=== PATIENT | male | born 1960 | race African-American/Black ===

== ENCOUNTER 2016-06-04 19:49 | Emergency (ER) | payer SELFPAY ==
[~2016-06-04] VITALS: Ht 157.5 cm; Wt 82.0 kg
[~2016-06-04 19:49] MED LIST: LORT5TAB PO
[2016-06-04 20:58] VITALS: BP 139/70; PULSE 66; RESP 19; O2SAT 96
--- NOTE | 2016-06-04 21:16 | PD ---
HPI Chief Complaint: Lump, Cyst, Hernia Time Seen by Provider: 20:45 Travel History International Travel<30 days: No Contact w/Intl Traveler<30days: No Traveled to known affect area: No History of Present Illness HPI Patient comes in complaining of a lump in his right groin ongoing for approximately 6 weeks. Patient reports pain began after helping lift some palm trees up into the ground. Patient describes pain as a sharp burning like pain without radiation. Denies anything making the pain better or worse. Patient denies doing anything for this prior to coming to the emergency department. Denies any dysuria, testicular pain, abdominal pain, back pain, or fevers. Denies any loss or change in bowel or bladder. History Social History Alcohol Use: Yes Tobacco Use: No Allergies-Medications (Allergen,Severity, Reaction): Coded Allergies: No Known Allergies (Verified , 06/04/16) Reported Meds & Prescriptions Reported Meds & Active Scripts Active Lortab 5/500 (Acetaminophen/Hydrocodone Bitart) 5 Mg/500 Mg Tab 1 Tab PO Q4HPRN FOR PAIN Review of Systems Except as stated in HPI: all other systems reviewed are Neg Physical Exam Narrative GENERAL: Well-developed, overly nourished, in no acute distress, and non-ill appearing. SKIN: Warm and dry. HEAD: Atraumatic. Normocephalic. EYES: Pupils equal and round. EOMI. No scleral icterus. No injection or drainage. ENT: No nasal bleeding or discharge. Mucous membranes pink and moist. NECK: Trachea midline. Supple. No nuclear rigidity. RESPIRATORY: No accessory muscle use. No respiratory distress. GASTROINTESTINAL: Abdomen soft, non-tender, nondistended. Hepatic and splenic margins not palpable. No pulsatile mass. Patient is felt mass in the right inguinal suspicious for a hydrocele, less likely a hernia. There is no signs of inflammation or infection. No signs of abscess. MUSCULOSKELETAL: No obvious deformities. No clubbing. No cyanosis. No edema. Full range of motion. NEUROLOGICAL: Awake and alert. No obvious cranial nerve deficits. Motor grossly within normal limits. Normal speech. PSYCHIATRIC: Appropriate mood and affect; insight and judgment normal. Data Data Last Documented VS Vital Signs Date Time Temp Pulse Resp B/P Pulse Ox O2 Delivery O2 Flow Rate FiO2 06/04/16 20:58 66 19 139/70 96 Room Air MDM Medical Screen Exam Complete: Yes Emergency Medical Condition: No Narrative Course History and physical exam findings are not consistent with an emergent medical condition. He was given the option of receiving additional care, but has declined. Therefore the appropriate counseling recommendations were discussed with the patient and he was instructed to follow-up with his primary care physician as soon as possible for reevaluation. Patient was also informed of community resources from which he can obtain additional care. He is agreeable and verbalizes an understanding of the proposed plan. The patient states he will immediately return to the emergency department if his current complaints do not improve, new symptoms arise, or emergent condition develops. Patient ambulated out of the emergency department without difficulty. Primary Impression: Encounter for medical screening examination Disposition: [facility]-ED USE ONLY Condition: Stable Obi Suggs Jun 04, 2016 21:15
== END 2016-06-04 21:11 | disposition left against medical advice (07) ==
LOC: NEPB 19:49
DX: R10.31 Right lower quadrant pain (principal)
CPT/HCPCS: 99281

== ENCOUNTER 2016-10-21 16:25 | Inpatient (IN) | payer SELFPAY ==
[~2016-10-21] VITALS: Ht 157.5 cm; Wt 80.0 kg
[2016-10-21 16:28] VITALS: BP 129/74; PULSE 82; RESP 24; TEMP 98.5; O2SAT 95
--- NOTE | 2016-10-21 16:43 | PD ---
Physical Exam Time Seen by Provider: 16:43 Narrative 55 y/o male here for evaluation of abdominal pain for 2 days. Vital signs reviewed. seen at triage desk. Awaiting bed placement. Data Data Last Documented VS Vital Signs Date Time Temp Pulse Resp B/P Pulse Ox O2 Delivery O2 Flow Rate FiO2 10/21/16 16:28 98.5 82 24 129/74 95 Room Air MDM Medical Record Reviewed: Yes Supervised Visit with JULIA: No Timothy Ray Oct 21, 2016 16:43
[2016-10-21] MEDS ORDERED: SODIUM CHLOR 0.9% 1000 ML INJ 1,000 ML IV SCH (20:11)
[2016-10-21] MEDS ORDERED: SODIUM CHLORIDE 0.9% FLUSH 10 ML FLUSH IV FLUSH PRN (20:15)
--- NOTE | 2016-10-21 20:15 | PD ---
HPI Chief Complaint: Abdominal Pain Time Seen by Provider: 20:10 Travel History International Travel<30 days: No Contact w/Intl Traveler<30days: No Traveled to known affect area: No History of Present Illness HPI This is a 55-year-old male with no significant past medical history, presents today with points of abdominal pain 2 days. Patient denies any fevers, chills. He reports loose stools and diarrhea 6 episodes. 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 She reports her /the patient cares for this patient more than anyone else. She reports that he does use gloves however he is started to experience the symptoms 2 days ago. As no blood in his stool. There is no significant GI history. He does have an inguinal hernia. He complains of pain in his supraumbilical/epigastric area. There are no other complaints time my examination. PFSH Past Medical History High Cholesterol: Yes Diminished Hearing: No Influenza Vaccination: No Past Surgical History Other Surgery: Yes (PLATE IN LEFT ANTRIOR HEAD) Social History Alcohol Use: No Tobacco Use: No Substance Use: No Allergies-Medications (Allergen,Severity, Reaction): Coded Allergies: No Known Allergies (Verified , 06/04/16) Reported Meds & Prescriptions Reported Meds & Active Scripts Active No Active Prescriptions or Reported Medications Review of Systems Except as stated in HPI: all other systems reviewed are Neg General / Constitutional: No: Fever, Chills HENT: No: Headaches, Lightheadedness, Neck Pain Cardiovascular: No: Chest Pain or Discomfort, Palpitations Respiratory: No: Cough Gastrointestinal: Positive: Diarrhea, Abdominal Pain (supraumbilical/epigastric ), No: Nausea, Vomiting, Hematochezia Genitourinary: No: Frequency, Dysuria Musculoskeletal: No: Weakness, Pain Neurologic: No: Weakness, Dizziness, Headache Physical Exam Narrative GENERAL: Well-developed well-nourished gentleman in no acute respiratory distress. SKIN: Focused skin assessment warm/dry. HEAD: Atraumatic. Normocephalic. EYES: Pupils equal and round. No scleral icterus. No injection or drainage. ENT: No nasal bleeding or discharge. Mucous membranes pink and moist. NECK: Trachea midline. No JVD. Supple. CARDIOVASCULAR: Regular rate and rhythm. No murmur appreciated. RESPIRATORY: No accessory muscle use. Clear to auscultation. Breath sounds equal bilaterally. GASTROINTESTINAL: Abdomen soft, slightly distended. There is tenderness in his supraumbilical area. There appears to be questionable reducible ventral hernia. There is no rebound or guarding. There is also mild discomfort in his epigastrium. MUSCULOSKELETAL: No obvious deformities. No clubbing. No cyanosis. No edema. NEUROLOGICAL: Awake and alert. No obvious cranial nerve deficits. Motor grossly within normal limits. Normal speech. PSYCHIATRIC: Appropriate mood and affect; insight and judgment normal. Data Data Last Documented VS Vital Signs Date Time Temp Pulse Resp B/P Pulse Ox O2 Delivery O2 Flow Rate FiO2 10/21/16 22:26 61 18 117/60 97 Room Air 10/21/16 16:28 98.5 Orders Complete Blood Count With Diff (10/21/16 20:11) Comprehensive Metabolic Panel (10/21/16 20:11) Lipase (10/21/16 20:11) Urinalysis - C+S If Indicated (10/21/16 20:11) Iv Access Insert/Monitor (10/21/16 20:11) Ecg Monitoring (10/21/16 20:11) Oximetry (10/21/16 20:11) Sodium Chlor 0.9% 1000 Ml Inj (Ns 1000 M (10/21/16 20:11) Sodium Chloride 0.9% Flush (Ns Flush) (10/21/16 20:15) C Diff Toxin Pcr (10/21/16 20:11) Ct Abd/Pel W Iv Contrast(Rout) (10/21/16 21:38) Oral Contrast - Adult (10/21/16 21:40) Diatrizoate Liq ( Gastrowesly Liq) (10/21/16 21:40) Oral Contrast - Adult (10/21/16 23:19) Iohexol 350 Inj (Omnipaque 350 Inj) (10/21/16 23:25) Ng Gastric Tube Insert/Monitor (10/22/16 00:06) Labs Laboratory Tests Test 10/21/16 10/21/16 20:15 22:30 White Blood Count 16.3 TH/MM3 Red Blood Count 4.91 MIL/MM3 Hemoglobin 15.1 GM/DL Hematocrit 43.0 % Mean Corpuscular Volume 87.5 FL Mean Corpuscular Hemoglobin 30.7 PG Mean Corpuscular Hemoglobin 35.1 % Concent Red Cell Distribution Width 13.0 % Platelet Count 225 TH/MM3 Mean Platelet Volume 8.6 FL Neutrophils (%) (Auto) 69.3 % Lymphocytes (%) (Auto) 21.1 % Monocytes (%) (Auto) 7.9 % Eosinophils (%) (Auto) 1.3 % Basophils (%) (Auto) 0.4 % Neutrophils # (Auto) 11.3 TH/MM3 Lymphocytes # (Auto) 3.5 TH/MM3 Monocytes # (Auto) 1.3 TH/MM3 Eosinophils # (Auto) 0.2 TH/MM3 Basophils # (Auto) 0.1 TH/MM3 CBC Comment DIFF FINAL Differential Comment Sodium Level 138 MEQ/L Potassium Level 4.3 MEQ/L Chloride Level 103 MEQ/L Carbon Dioxide Level 29.6 MEQ/L Anion Gap 5 MEQ/L Blood Urea Nitrogen 24 MG/DL Creatinine 1.32 MG/DL Estimat Glomerular Filtration 69 ML/MIN Rate Random Glucose 92 MG/DL Calcium Level 9.0 MG/DL Total Bilirubin 0.3 MG/DL Aspartate Amino Transf 35 U/L (AST/SGOT) Alanine Aminotransferase 44 U/L (ALT/SGPT) Alkaline Phosphatase 111 U/L Total Protein 7.7 GM/DL Albumin 3.7 GM/DL Lipase 241 U/L Urine Color LIGHT-YELLOW Urine Turbidity CLEAR Urine pH 5.5 Urine Specific [place] 1.014 Urine Protein NEG mg/dL Urine Glucose (UA) NEG mg/dL Urine Ketones NEG mg/dL Urine Occult Blood NEG Urine Nitrite NEG Urine Bilirubin NEG Urine Urobilinogen LESS THAN 2.0 MG/DL Urine Leukocyte Esterase NEG Urine RBC LESS THAN 1 /hpf Urine WBC LESS THAN 1 /hpf Microscopic Urinalysis Comment CULT NOT INDICATED MDM Medical Decision Making Medical Screen Exam Complete: Yes Emergency Medical Condition: Yes Interpretation(s) Last 24 hours Impressions Abdomen/Pelvis CT 10/21/16 1368 Signed Impressions: Service Date/Time: October 23:19 - CONCLUSION: 1. Proximal small bowel dilatation which may reflect partial obstruction. No free air is identified. Followup examination is recommended if clinically indicated. Raghu Wilson MD Differential Diagnosis C. difficile versus ventral hernia versus pancreatitis versus diverticulitis Narrative Course 55-year-old male presents with abdominal pain and diarrhea. The patient states he's had for a couple days now. He denies a fevers, chills. 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 One of them had diarrhea. Concern was this could be C. difficile. White count was elevated at 16,000. He did not have a surgical abdomen on exam. CT scan shows partial small bowel obstruction. An NG tube has been placed and was put out a lot of clear liquids. He'll be admitted for bowel rest. There is a call out to the [facility] for admission. He'll be a surgical consult placed for tomorrow morning. Diagnosis Primary Impression: Partial bowel obstruction Additional Impressions: Diarrhea Abdominal pain Admitting Information Admitting Physician Requests: Admit Scripts No Active Prescriptions or Reported Meds Dimitri Shaw MD Oct 21, 2016 20:15
[2016-10-21 21:00] VITALS: BP 131/77; PULSE 63; RESP 18; O2SAT 98
[2016-10-21 21:03] LABS: AUTOMATED NEUTROPHIL # 11.3 TH/MM3 (1.8-7.7); BASOPHIL # 0.1 TH/MM3 (0-0.2); BASOPHIL % 0.4 % (0.0-2.0); EOSINOPHIL # 0.2 TH/MM3 (0-0.4); EOSINOPHIL % 1.3 % (0.0-4.0); HEMO FLAGS DIFF FINAL; LYMPH % 21.1 % (9.0-44.0); LYMPHOCYTE # 3.5 TH/MM3 (1.0-4.8); MEAN CELL VOLUME 87.5 FL (80.0-100.0); MEAN CORPUSCULAR HEMOGLOBIN 30.7 PG (27.0-34.0); MEAN CORPUSCULAR HGB CONC 35.1 % (32.0-36.0); MONO % 7.9 % (0.0-8.0); NEUT % 69.3 % (16.0-70.0); PLATELET COUNT 225 TH/MM3 (150-450); RED BLOOD COUNT 4.91 MIL/MM3 (4.50-5.90); WHITE BLOOD COUNT 16.3 TH/MM3 (4.0-11.0)
[2016-10-21 21:22] LABS: ANION GAP 5 MEQ/L (5-15); AST (GOT) 35 U/L (15-37); BICARBONATE 29.6 MEQ/L (21.0-32.0); BLOOD UREA NITROGEN 24 MG/DL (7-18); CHLORIDE 103 MEQ/L (98-107); GLOMERULAR FILTRATION RATE 69 ML/MIN (>89); POTASSIUM 4.3 MEQ/L (3.5-5.1); SODIUM (NA) 138 MEQ/L (136-145)
[2016-10-21 21:26] LABS: ALKALINE PHOSPHATASE 111 U/L (45-117); ALT (GPT) 44 U/L (12-78); TOTAL BILIRUBIN ADULT 0.3 MG/DL (0.2-1.0)
[2016-10-21] MEDS ORDERED: DIATRIZOATE MEGLUM/DIATRIZOATE SOD 9 ML CUP ONE (21:40)
[2016-10-21 22:26] VITALS: BP 117/60; PULSE 61; RESP 18; O2SAT 97
[2016-10-21 22:57] LABS: BLOOD, URINE NEG (NEG); GLUCOSE,URINE NEG (NEG); KETONE, URINE NEG (NEG); NITRITE,URINE NEG (NEG); PH, URINE 5.5 (5.0-8.5); URINE COLOR LIGHT-YELLOW (YELLW/STRAW)
[2016-10-21 23:04] LABS: COMMENT (UR) CULT NOT INDICATED; CULTURE IF INDICATED CULT NOT INDICATED
[2016-10-21] MEDS ORDERED: IOHEXOL 350 MG/ML 10 ML VIAL (for RAD DIAG) IV ONE (23:25)
--- NOTE | 2016-10-21 23:53 | RADRPT ---
EXAM DATE/TIME: 10/21/2016 23:19 [facility] COMPARISON: No previous studies available for comparison. INDICATIONS : Left side abdominal pain. IV CONTRAST: cc Omnipaque 350 (iohexol) IV ORAL CONTRAST: Prescribed oral contrast ingested. RADIATION DOSE: 10.29 CTDIvol (mGy) MEDICAL HISTORY : None SURGICAL HISTORY : None. ENCOUNTER: Initial ACUITY: 1 day PAIN SCALE: 9/10 LOCATION: Left abdomen. TECHNIQUE: Volumetric scanning of the abdomen and pelvis was performed. Using automated exposure control and ad justment of the mA and/or kV according to patient size, radiation dose was kept as low as reasonably achievable to obtain optimal diagnostic quality images. DICOM format image data is available electro nically for review and comparison. FINDINGS: There is subsegmental atelectasis in the left base. No pleural effusions are identified. The liver an d spleen are normal in size and no focal defects are identified. The gallbladder and pancreas are unr emarkable. No intrahepatic or extrahepatic ductal dilatation is seen. The adrenal glands and kidneys appear normal bilaterally. No hydronephrosis or mass lesions are identified. There is a distended loo p of proximal small bowel which may reflect partial obstruction. The majority of the small bowel is n ondistended. Examination of the right lower quadrant demonstrates no abnormality. The appendix is nguyen ntified and appears normal. Examination of the pelvis demonstrates no evidence of free fluid or pelvic mass. No abnormally enlarg ed inguinal or retroperitoneal lymph nodes are present. The bladder is unremarkable. The prostate gla nd is moderately enlarged impinging on the bladder base. CONCLUSION: 1. Proximal small bowel dilatation which may reflect partial obstruction. No free air is identified. Followup examination is recommended if clinically indicated. Raghu Wilson MD on October 21, 2016 at 23:47 Board Certified Radiologist. This report was verified electronically.
[2016-10-22] VITALS (8 sets, daily range): BP systolic 135–172; BP diastolic 73–91; PULSE 68–79; RESP 17–18; TEMP 95.9–99.1; O2SAT 92–99
[2016-10-22] MEDS: SODIUM CHLOR 0.9% 1000 ML INJ 1,000 ML IV SCH ×3 (00:28→20:21)
[2016-10-22] MEDS ORDERED: BISACODYL 10 MG SUPP RECTAL PRN (00:30)
[2016-10-22] MEDS ORDERED: SENNOSIDES 8.6 MG TAB PO PRN (00:30)
[2016-10-22] MEDS ORDERED: ACETAMINOPHEN 1000 MG/100 ML VIAL IV PRN (00:30)
[2016-10-22] MEDS ORDERED: LACTULOSE SYRUP 20 GM/30 ML CUP PO PRN (00:30)
[2016-10-22] MEDS ORDERED: SODIUM CHLORIDE 0.9% FLUSH 10 ML FLUSH IV FLUSH PRN (00:30)
[2016-10-22] MEDS ORDERED: ONDANSETRON HCL 4 MG/2 ML VIAL IVP PRN (00:30)
[2016-10-22] MEDS ORDERED: MAGNESIUM HYDROXIDE SUSP 30 ML CUP PO PRN (00:30)
[2016-10-22] MEDS ORDERED: MORPHINE SULFATE 4 MG/ML INJ IV PRN (00:30)
--- NOTE | 2016-10-22 03:35 | HHI.HP ---
HPI [facility] Primary [facility] Physician No Primary Care Physician Admission Diagnosis Partial small bowel obstruction, diarrhea, abdominal pain Diagnoses: (1) Partial small bowel obstruction Diagnosis: Principal (2) Renal insufficiency Diagnosis: Principal (3) Leukocytosis Diagnosis: Principal (4) HTN (hypertension) Diagnosis: Principal Travel History International Travel<30 Days: No Contact w/Intl Traveler <30 Da: No Traveled to Known Affected Are: No History of Present Illness This is a 55-year-old male with a PMH of HTN and Hyperlipidemia who presented to the ER with complaints of abdominal pain in addition to several episodes of diarrhea x2 days. Denies nausea or vomiting. No fever or chills. On arrival, BP 129/74, HR 82, O2 sat 95% on RA, Afebrile. WBC 16.3. Creatinine 1.32, no previous labs for comparison. U/a negative. CT Abd/Pelvis w/ proximal small bowel dilatation, possibly partial obstruction. S/p NGT in ER. C. Diff pending. Review of Systems Except as stated in HPI: all other systems reviewed are Neg ROS: 14 point review of systems otherwise negative. Past Family Social History Past Medical History PMH: HTN and Hyperlipidemia Past Surgical History PAST SURGICAL HISTORY: Cranial Plate Allergies: Coded Allergies: No Known Allergies (Verified , 06/04/16) Family History PAST FAMILY HISTORY: Reviewed. No h/o DM or CAD Social History PAST SOCIAL HISTORY: Negative for alcohol, tobacco or drugs. Physical Exam Vital Signs Vital Signs Date Time Temp Pulse Resp B/P Pulse Ox O2 Delivery O2 Flow Rate FiO2 10/22/16 01:55 95.9 71 18 157/85 95 10/22/16 01:00 70 16 135/73 99 10/22/16 00:16 68 18 168/83 99 Room Air 10/21/16 22:26 61 18 117/60 97 Room Air 10/21/16 21:00 63 18 131/77 98 Room Air 10/21/16 16:28 98.5 82 24 129/74 95 Room Air Physical Exam PE: GENERAL: Malaise male in no acute distress. NGT in place HEENT: PERRLA, EOMI. No scleral icterus or conjunctival pallor. No lid lag or facial droop. CARDIOVASCULAR: Regular rate and rhythm. No obvious murmurs to auscultation. No chest tenderness to palpation. RESPIRATORY: No obvious rhonchi or wheezing. Clear to auscultation. Breath sounds equal bilaterally. GASTROINTESTINAL: Abdomen soft, mild generalized tenderness palpation, nondistended. BS normal. MUSCULOSKELETAL: Extremities without clubbing, cyanosis, or edema. No obvious deformities. NEUROLOGICAL: Awake, alert and oriented x4. No focal neurologic deficits. Moving both upper and lower extremities spontaneously. Laboratory Laboratory Tests Test 10/21/16 10/21/16 20:15 22:30 White Blood Count 16.3 Red Blood Count 4.91 Hemoglobin 15.1 Hematocrit 43.0 Mean Corpuscular Volume 87.5 Mean Corpuscular Hemoglobin 30.7 Mean Corpuscular Hemoglobin 35.1 Concent Red Cell Distribution Width 13.0 Platelet Count 225 Mean Platelet Volume 8.6 Neutrophils (%) (Auto) 69.3 Lymphocytes (%) (Auto) 21.1 Monocytes (%) (Auto) 7.9 Eosinophils (%) (Auto) 1.3 Basophils (%) (Auto) 0.4 Neutrophils # (Auto) 11.3 Lymphocytes # (Auto) 3.5 Monocytes # (Auto) 1.3 Eosinophils # (Auto) 0.2 Basophils # (Auto) 0.1 CBC Comment DIFF FINAL Differential Comment Sodium Level 138 Potassium Level 4.3 Chloride Level 103 Carbon Dioxide Level 29.6 Anion Gap 5 Blood Urea Nitrogen 24 Creatinine 1.32 Estimat Glomerular Filtration 69 Rate Random Glucose 92 Calcium Level 9.0 Total Bilirubin 0.3 Aspartate Amino Transf 35 (AST/SGOT) Alanine Aminotransferase 44 (ALT/SGPT) Alkaline Phosphatase 111 Total Protein 7.7 Albumin 3.7 Lipase 241 Urine Color LIGHT-YELLOW Urine Turbidity CLEAR Urine pH 5.5 Urine Specific [place] 1.014 Urine Protein NEG Urine Glucose (UA) NEG Urine Ketones NEG Urine Occult Blood NEG Urine Nitrite NEG Urine Bilirubin NEG Urine Urobilinogen LESS THAN 2.0 Urine Leukocyte Esterase NEG Urine RBC LESS THAN 1 Urine WBC LESS THAN 1 Microscopic Urinalysis Comment CULT NOT INDICATED Result Diagram: 10/21/16201410/21/162014 Assessment and Plan Problem List: (1) Partial small bowel obstruction ICD Code: K56.69 Status: Acute (2) Leukocytosis ICD Code: D72.829 Status: Acute (3) Renal insufficiency ICD Code: N28.9 Status: Acute (4) HTN (hypertension) ICD Code: I10 Status: Acute Assessment and Plan A/P: 1. Partial SBO: c/o abdominal pain w/ diarrhea x2 days, no fever, chills, nausea or vomiting. CT Abd/Pelvis w/ partial SBO, images reviewed by me, s/p NGT in ER. Keep NPO, monitor I/O, analgesics/antiemetics as needed, IVF for hydration. 2. Leukocytosis: WBC 16, no shift, afebrile. Likely reactive. Will repeat labs in am. 3. Renal Insufficiency: Creatinine 1.32, no previous labs for comparison. UA negative. IVF for hydration, repeat labs in a.m. 4. HTN: BP 120's on arrival, currently 160's. Will monitor. Antihypertensives as needed. 5. DVT Prophylaxis: SCD/Teds. 6. Social work for d/c planning as needed. 7. Case discussed w/ ER physician at length. Physician Certification 2 Midnight Certification Type: Admission for Inpatient Services Order for Inpatient Services The services are ordered in accordance with Medicare regulations or non- Medicare payer requirements, as applicable. In the case of services not specified as inpatient-only, they are appropriately provided as inpatient services in accordance with the 2-midnight benchmark. Estimated LOS (days): 2 days is the estimated time the patient will need to remain in the hospital, assuming treatment plan goals are met and no additional complications. Post-Hospital Plan: Not yet determined Salena Brasher MD Oct 22, 2016 03:35
[2016-10-22] MEDS: MORPHINE SULFATE 4 MG/ML INJ IV PRN ×4 (04:03→20:55)
[2016-10-22] MEDS: SODIUM CHLORIDE 0.9% FLUSH 10 ML FLUSH IV FLUSH SCH ×2 (08:15→21:00)
[2016-10-22] MEDS: DOCUSATE SODIUM 50 MG/SENNA 8.6 MG TAB PO SCH ×2 (08:16→20:53)
--- NOTE | 2016-10-22 13:12 | HHI.PR ---
Subjective Remarks Follow-up for SBO Had a big bowel movement this morning, allegedly loose. Abdominal pain resolved. No nausea or vomiting. Objective Vitals Vital Signs Date Time Temp Pulse Resp B/P Pulse Ox O2 Delivery O2 Flow Rate FiO2 10/22/16 12:00 98.3 74 17 158/81 94 10/22/16 08:00 98.0 70 17 153/83 93 10/22/16 06:44 96.3 72 18 147/84 92 10/22/16 01:55 95.9 71 18 157/85 95 10/22/16 01:00 70 16 135/73 99 10/22/16 00:16 68 18 168/83 99 Room Air 10/21/16 22:26 61 18 117/60 97 Room Air 10/21/16 21:00 63 18 131/77 98 Room Air 10/21/16 16:28 98.5 82 24 129/74 95 Room Air I/O 10/21/16 10/21/16 10/21/16 10/22/16 10/22/16 10/22/16 06:59 14:59 22:59 06:59 14:59 22:59 Intake Total 1572 ml Output Total 275 ml Balance 1297 ml Intake IV Total 1572 ml Output Gastric Drainage Total 275 ml # Voids 1 Result Diagram: 10/21/16201410/21/162014 Objective Remarks GENERAL: Malaise male in no acute distress. NGT in place CARDIOVASCULAR: Regular rate and rhythm. No obvious murmurs to auscultation. No chest tenderness to palpation. RESPIRATORY: No obvious rhonchi or wheezing. Clear to auscultation. Breath sounds equal bilaterally. GASTROINTESTINAL: Abdomen soft, mild generalized tenderness palpation, nondistended. BS normal. MUSCULOSKELETAL: Extremities without clubbing, cyanosis, or edema. No obvious deformities. NEUROLOGICAL: Awake, alert and oriented x4. No focal neurologic deficits. Moving both upper and lower extremities spontaneously. A/P Problem List: (1) Partial small bowel obstruction ICD Code: K56.69 Status: Acute (2) Leukocytosis ICD Code: D72.829 Status: Acute (3) Renal insufficiency ICD Code: N28.9 Status: Acute (4) HTN (hypertension) ICD Code: I10 Status: Acute Assessment and Plan 1. Partial SBO: c/o abdominal pain w/ diarrhea x2 days, no fever, chills, nausea or vomiting. CT Abd/Pelvis w/ partial SBO, images reviewed by me, NG tube in place, passing gas, had a bowel movement. Clamp NG tube, check abdominal x-ray, full liquid diet. Check CBC and BMP tomorrow, continue IVF. 2. Leukocytosis: WBC 16, no shift, afebrile. Likely reactive. Will repeat labs in am. 3. Renal Insufficiency: Creatinine 1.32, no previous labs for comparison. UA negative. IVF for hydration, repeat labs in a.m. 4. HTN: BP 120's on arrival, currently 160's. Will monitor. Antihypertensives as needed. 5. DVT Prophylaxis: SCD/Teds. Janeth Boone MD Oct 22, 2016 13:12
--- NOTE | 2016-10-22 17:39 | RADRPT ---
EXAM DATE/TIME: 10/22/2016 17:09 [facility] COMPARISON: No previous studies available for comparison. INDICATIONS : Obstruction. MEDICAL HISTORY : None. SURGICAL HISTORY : None. ENCOUNTER: Initial ACUITY: 2 days PAIN SCORE: 0/10 LOCATION: Bilateral abdomen. FINDINGS: Nasogastric tube is across the GE junction. Minimal radiograph contrast is present throughout the co kathrin. I do not see evidence or complete small bowel obstruction. CONCLUSION: Negative for small bowel obstruction. Again the contrast is in the rectum. Chuy Martin MD FACR on October 22, 2016 at 17:36 Board Certified Radiologist. This report was verified electronically.
[2016-10-23] VITALS: BP 161/87; PULSE 83; RESP 18; TEMP 97.9; O2SAT 92
[2016-10-23 05:21] LABS: AUTOMATED NEUTROPHIL # 15.2 TH/MM3 (1.8-7.7); BASOPHIL # 0.1 TH/MM3 (0-0.2); BASOPHIL % 0.5 % (0.0-2.0); EOSINOPHIL # 0.2 TH/MM3 (0-0.4); EOSINOPHIL % 0.9 % (0.0-4.0); HEMATOCRIT 43.6 % (39.0-51.0); HEMO FLAGS DIFF FINAL; LYMPH % 11.4 % (9.0-44.0); LYMPHOCYTE # 2.2 TH/MM3 (1.0-4.8); MEAN CELL VOLUME 87.9 FL (80.0-100.0); MEAN CORPUSCULAR HEMOGLOBIN 29.9 PG (27.0-34.0); MONO % 7.5 % (0.0-8.0); NEUT % 79.7 % (16.0-70.0); PLATELET COUNT 234 TH/MM3 (150-450); RED BLOOD COUNT 4.96 MIL/MM3 (4.50-5.90); RED CELL DISTRIBUTION WIDTH 13.1 % (11.6-17.2); WHITE BLOOD COUNT 19.1 TH/MM3 (4.0-11.0)
[2016-10-23 06:06] LABS: ALKALINE PHOSPHATASE 98 U/L (45-117); ALT (GPT) 32 U/L (12-78); ANION GAP 9 MEQ/L (5-15); AST (GOT) 17 U/L (15-37); BICARBONATE 25.6 MEQ/L (21.0-32.0); BLOOD UREA NITROGEN 8 MG/DL (7-18); CHLORIDE 104 MEQ/L (98-107); GLOMERULAR FILTRATION RATE 74 ML/MIN (>89); POTASSIUM 3.7 MEQ/L (3.5-5.1); SODIUM (NA) 139 MEQ/L (136-145); TOTAL BILIRUBIN ADULT 0.5 MG/DL (0.2-1.0)
[2016-10-23] MEDS: SODIUM CHLOR 0.9% 1000 ML INJ 1,000 ML IV SCH (06:21)
[2016-10-23 08:00] VITALS: BP 157/86; PULSE 75; RESP 18; TEMP 98.7; O2SAT 93
[2016-10-23] MEDS: DOCUSATE SODIUM 50 MG/SENNA 8.6 MG TAB PO SCH (08:08)
[2016-10-23] MEDS: SODIUM CHLORIDE 0.9% FLUSH 10 ML FLUSH IV FLUSH SCH (08:09)
--- NOTE | 2016-10-23 10:09 | HHI.PR ---
Subjective Remarks Follow-up for SBO Had a big bowel movement, normal, formed, passing gas. No abdominal pain, nausea or vomiting. Tolerated regular diet for dinner. Objective Vitals Vital Signs Date Time Temp Pulse Resp B/P Pulse Ox O2 Delivery O2 Flow Rate FiO2 10/23/16 08:00 98.7 75 18 157/86 93 10/23/16 00:00 97.9 83 18 161/87 92 10/22/16 20:00 98.8 79 18 172/91 95 10/22/16 16:00 99.1 78 17 161/90 94 10/22/16 12:00 98.3 74 17 158/81 94 I/O 10/22/16 10/22/16 10/22/16 10/23/16 10/23/16 10/23/16 07:00 15:00 23:00 07:00 15:00 23:00 Intake Total 1572 ml 1428 ml 210 ml 637 ml Output Total 275 ml 600 ml 400 ml Balance 1297 ml 1428 ml -390 ml 237 ml Intake Oral 720 ml IV Total 1572 ml 708 ml 210 ml 637 ml Output Urine Total 600 ml 400 ml Gastric Drainage Total 275 ml # Voids 1 3 # Bowel Movements 0 Result Diagram: 10/23/16 0456 10/23/16 0456 Imaging Last Impressions Abdomen X-Ray 10/22/16 0000 Signed Impressions: Service Date/Time: Saturday, October 22, 2016 17:09 - CONCLUSION: Negative for small bowel obstruction. Again the contrast is in the rectum. Chuy Martin MD FACR Abdomen/Pelvis CT 10/21/168 Signed Impressions: Service Date/Time: October 23:19 - CONCLUSION: 1. Proximal small bowel dilatation which may reflect partial obstruction. No free air is identified. Followup examination is recommended if clinically indicated. Raghu Wilson MD Objective Remarks GENERAL: Not in distress, NG tube in place CARDIOVASCULAR: Regular rate and rhythm. No obvious murmurs to auscultation. No chest tenderness to palpation. RESPIRATORY: No obvious rhonchi or wheezing. Clear to auscultation. Breath sounds equal bilaterally. GASTROINTESTINAL: Abdomen soft, nontender, nondistended, obese. MUSCULOSKELETAL: Extremities without clubbing, cyanosis, or edema. No obvious deformities. NEUROLOGICAL: Awake, alert and oriented x4. No focal neurologic deficits. Moving both upper and lower extremities spontaneously. A/P Problem List: (1) Partial small bowel obstruction ICD Code: K56.69 Status: Acute (2) Leukocytosis ICD Code: D72.829 Status: Acute (3) Renal insufficiency ICD Code: N28.9 Status: Acute (4) HTN (hypertension) ICD Code: I10 Status: Acute Assessment and Plan This is a 55-year-old male who came in with diarrhea and severe abdominal pain 1. Partial SBO with gastroenteritis: c/o abdominal pain w/ diarrhea x2 days, no fever, chills, nausea or vomiting. CT Abd/Pelvis w/ partial SBO, NG tube in place, passing gas, had not a big bowel movement, tolerating diet, remove NG tube, repeat abdominal x-ray unremarkable, no SBO. If tolerates breakfast, may discharge today 2. Leukocytosis: Likely secondary to gastroenteritis/reactive. Patient's bowel movements are formed, diarrhea resolved. 3. Renal Insufficiency: Resolved with IVF 4. HTN: BP 120's on arrival, currently 160's. Will monitor. Antihypertensives as needed. Follow-up as outpatient 5. DVT Prophylaxis: SCD/Teds. Discharge Planning Discharge today if tolerates breakfast Janeth Boone MD Oct 23, 2016 10:08
--- NOTE | 2016-10-23 10:13 | HHI.DS ---
Discharge Summary Admission Date Oct 22, 2016 at 00:28 Discharge Date: Oct 23, 2016 Admitting Diagnosis Partial small bowel obstruction, diarrhea, abdominal pain (1) Partial small bowel obstruction ICD Code: K56.69 Diagnosis: Principal (2) Leukocytosis ICD Code: D72.829 Diagnosis: Secondary (3) Renal insufficiency ICD Code: N28.9 Diagnosis: Secondary (4) HTN (hypertension) ICD Code: I10 Diagnosis: Secondary (5) Gastroenteritis ICD Code: K52.9 Procedures None Brief History - From Admission This is a 55-year-old male with a PMH of HTN and Hyperlipidemia who presented to the ER with complaints of abdominal pain in addition to several episodes of diarrhea x2 days. Denies nausea or vomiting. No fever or chills. On arrival, BP 129/74, HR 82, O2 sat 95% on RA, Afebrile. WBC 16.3. Creatinine 1.32, no previous labs for comparison. U/a negative. CT Abd/Pelvis w/ proximal small bowel dilatation, possibly partial obstruction. S/p NGT in ER. C. Diff pending. CBC/BMP: 10/23/16 0456 10/23/16 0456 Significant Findings Laboratory Tests Test 10/21/16 10/23/16 20:15 04:56 White Blood Count 16.3 TH/MM3 19.1 TH/MM3 (4.0-11.0) (4.0-11.0) Neutrophils # (Auto) 11.3 TH/MM3 15.2 TH/MM3 (1.8-7.7) (1.8-7.7) Monocytes # (Auto) 1.3 TH/MM3 1.4 TH/MM3 (0-0.9) (0-0.9) Blood Urea Nitrogen 24 MG/DL (7-18) Creatinine 1.32 MG/DL (0.60-1.30) Estimat Glomerular Filtration 69 ML/MIN (>89) 74 ML/MIN (>89) Rate Neutrophils (%) (Auto) 79.7 % (16.0-70.0) Random Glucose 136 MG/DL (74-106) Albumin 3.2 GM/DL (3.4-5.0) PE at Discharge GENERAL: Not in distress, NG tube in place CARDIOVASCULAR: Regular rate and rhythm. No obvious murmurs to auscultation. No chest tenderness to palpation. RESPIRATORY: No obvious rhonchi or wheezing. Clear to auscultation. Breath sounds equal bilaterally. GASTROINTESTINAL: Abdomen soft, nontender, nondistended, obese. MUSCULOSKELETAL: Extremities without clubbing, cyanosis, or edema. No obvious deformities. NEUROLOGICAL: Awake, alert and oriented x4. No focal neurologic deficits. Moving both upper and lower extremities spontaneously. Hospital Course This is a 55-year-old male who came in with diarrhea and severe abdominal pain, CT scan of the abdomen showed partial SBO, NG tube was inserted. Patient was placed on bowel rest. Patient then had a successful bowel movement, diet was advanced, NG tube was removed. Repeat abdominal x-ray was unremarkable. Diarrhea has resolved. Patient also came in with acute renal failure which resolved with volume resuscitation. He has mildly elevated blood pressure, could be secondary to pain, he will follow-up with his primary care doctor if treatment is warranted. Pt Condition on Discharge: Good Discharge Disposition: Discharge Home Discharge Time: > 30 minutes Discharge Instructions DIET: Follow Instructions for: Heart Healthy Diet Activities you can perform: Regular-No Restrictions Follow up Referrals: PCP Follow-up - 1 Week Medication Profile: No Active Prescriptions or Reported MedJaneth Mcknight MD Oct 23, 2016 10:13
== END 2016-10-23 11:37 | disposition home or self-care (01) | DRG 390 ==
LOC: NEPE 16:25 → NEDA 10-22 00:28 → N07B 10-22 01:29
PROVIDERS: ADMIT Hospitalist; ATTEND Hospitalist
PROC: 0D9670Z Drainage of Stomach with Drainage Device, Via Natural or Artificial Opening (ICD-10-PCS; principal; 2016-10-21)
DX: K56.60 Unspecified intestinal obstruction (principal); I10 Essential (primary) hypertension; K40.90 Unilateral inguinal hernia, without obstruction or gangrene, not specified as recurrent; E78.00 Pure hypercholesterolemia, unspecified; N28.9 Disorder of kidney and ureter, unspecified; E78.5 Hyperlipidemia, unspecified; K52.9 Noninfective gastroenteritis and colitis, unspecified
CPT/HCPCS: 43753; 74000; 74177; 80053; 81001; 83690; 85025; J2270; J7030; Q9963; Q9967

== ENCOUNTER 2016-12-18 13:01 | Inpatient (IN) | payer SELFPAY ==
[~2016-12-18] VITALS: Ht 157.5 cm; Wt 90.0 kg
[2016-12-18] MEDS ORDERED: IOHEXOL 350 MG/ML 10 ML VIAL (for RAD DIAG) IVCONTRAST ONE (13:02)
[2016-12-18 13:15] VITALS: BP 142/78; PULSE 82; RESP 18; TEMP 101.4; O2SAT 96
--- NOTE | 2016-12-18 13:15 | PD ---
Physical Exam Date Seen by Provider: Dec 18, 2016 Time Seen by Provider: 13:09 [facility] Supervised Visit with JULIA: No Narrative Course 56 year old male presents to the ED for evaluation of 24 hour history of chills , sore throat, swelling of the neck. Endorses difficulty swallowing his own secretions, raspy voice. Denies dental problems. Vitals reviewed. Patient seen in triage, awaiting priority bed placement. Scripts No Active Prescriptions or Reported Meds Meagan Kamara Dec 18, 2016 13:15
[2016-12-18] MEDS ORDERED: SODIUM CHLOR 0.9% 1000 ML INJ 1,000 ML IV ONE (13:30)
[2016-12-18] MEDS ORDERED: SODIUM CHLORIDE 0.9% FLUSH 10 ML FLUSH IVF PRN (13:30)
[2016-12-18] MEDS ORDERED: ACETAMINOPHEN 325 MG TAB PO ONE (13:30)
--- NOTE | 2016-12-18 13:35 | PD ---
HPI Chief Complaint: Fever Time Seen by Provider: 13:17 Travel History International Travel<30 days: No Contact w/Intl Traveler<30days: No Traveled to known affect area: No History of Present Illness HPI 56-year-old male presents to the emergency department with his significant other at bedside for evaluation of fever, sore throat, cough, body aches that started approximately 24 hours ago. He reports difficulty swallowing due to pain. He was able to eat some chicken noodle soup this morning. Patient has history of small bowel obstruction. He is not currently taking any prescribed medications. Patient denies abdominal pain, nausea, vomiting, diarrhea. Patient is not had anything for fever in the past 12 hours. He reports loss of voice as well and significant other does most of the talking for him. His significant other is also concerned of some possible swelling to the left neck. He denies any history of asthma, COPD, pneumonia. PFSH Past Medical History Cardiovascular Problems: Yes High Cholesterol: Yes Diminished Hearing: No Gastrointestinal Disorders: No Genitourinary: No Musculoskeletal: No Neurologic: No Reproductive: No Respiratory: No Past Surgical History Abdominal Surgery: No Cardiac Surgery: Yes (high cholestrol) Ear Surgery: No Endocrine Surgery: No Eye Surgery: No Genitourinary Surgery: No Gynecologic Surgery: No Neurologic Surgery: No Oral Surgery: No Thoracic Surgery: No Other Surgery: No (PLATE IN LEFT ANTRIOR HEAD) Social History Alcohol Use: No Tobacco Use: Yes Substance Use: No Allergies-Medications (Allergen,Severity, Reaction): Coded Allergies: No Known Allergies (Verified , 12/18/16) Reported Meds & Prescriptions Reported Meds & Active Scripts Active No Active Prescriptions or Reported Medications Review of Systems Except as stated in HPI: all other systems reviewed are Neg Physical Exam Narrative GENERAL: Well-nourished, well-developed male patient, temp of 101.4. SKIN: Focused skin assessment warm/dry. HEAD: Normocephalic. Atraumatic. ENT: Mucosa pink and moist. No erythema or exudates. No uvular edema. No uvular , palatal, or tonsillar deviation. Airway patent. Nasal turbinates appear normal without nasal blood, purulent drainage or septal hematoma. Bilateral tympanic membranes are clear without erythema or perforation. Left anterior cervical lymph node enlargement. No tenderness. No fluctuance, induration to neck. EYES: No scleral icterus. No injection or drainage. NECK: Supple, trachea midline. No JVD or lymphadenopathy. CARDIOVASCULAR: Regular rate and rhythm without murmurs, gallops, or rubs. RESPIRATORY: Breath sounds equal bilaterally. No accessory muscle use. GASTROINTESTINAL: Abdomen soft, non-tender, nondistended. MUSCULOSKELETAL: No cyanosis, or edema. BACK: Nontender without obvious deformity. No CVA tenderness. Data Data Last Documented VS Vital Signs Date Time Temp Pulse Resp B/P (MAP) Pulse Ox O2 Delivery O2 Flow Rate FiO2 12/18/16 15:33 100.0 79 16 146/70 (95) 99 Room Air Orders Orders Complete Blood Count With Diff (12/18/16 13:29) Comprehensive Metabolic Panel (12/18/16 13:29) Group A Rapid Strep Screen (12/18/16 13:29) Influenzae A/B Antigen (12/18/16 13:29) Chest, Single Ap (12/18/16 13:29) Oximetry (12/18/16 13:29) Acetaminophen (Tylenol) (12/18/16 13:30) Sodium Chloride 0.9% Flush (Ns Flush) (12/18/16 13:30) Lactic Acid Sepsis Protocol (12/18/16 13:29) Blood Culture (12/18/16 13:29) Sodium Chlor 0.9% 1000 Ml Inj (Ns 1000 M (12/18/16 13:30) Ct Soft Tiss Neck W Iv Cont (12/18/16 ) Iohexol 350 Inj (Omnipaque 350 Inj) (12/18/16 13:02) Dexamethasone Inj (Decadron Inj) (12/18/16 15:45) Ampicillin-Sulbactam Inj (Unasyn Inj) (12/18/16 16:45) Admit Order (Ed Use Only) (12/18/16 17:45) Labs Laboratory Tests Test 12/18/16 13:20 White Blood Count 21.9 TH/MM3 Red Blood Count 4.60 MIL/MM3 Hemoglobin 14.1 GM/DL Hematocrit 40.9 % Mean Corpuscular Volume 88.9 FL Mean Corpuscular Hemoglobin 30.7 PG Mean Corpuscular Hemoglobin Concent 34.5 % Red Cell Distribution Width 13.4 % Platelet Count 254 TH/MM3 Mean Platelet Volume 8.4 FL Neutrophils (%) (Auto) 79.0 % Lymphocytes (%) (Auto) 11.4 % Monocytes (%) (Auto) 8.3 % Eosinophils (%) (Auto) 1.0 % Basophils (%) (Auto) 0.3 % Neutrophils # (Auto) 17.3 TH/MM3 Lymphocytes # (Auto) 2.5 TH/MM3 Monocytes # (Auto) 1.8 TH/MM3 Eosinophils # (Auto) 0.2 TH/MM3 Basophils # (Auto) 0.1 TH/MM3 CBC Comment DIFF FINAL Differential Comment Blood Urea Nitrogen 9 MG/DL Creatinine 1.29 MG/DL Random Glucose 122 MG/DL Total Protein 7.6 GM/DL Albumin 3.5 GM/DL Calcium Level 8.8 MG/DL Alkaline Phosphatase 107 U/L Aspartate Amino Transf (AST/SGOT) 22 U/L Alanine Aminotransferase (ALT/SGPT) 33 U/L Total Bilirubin 0.4 MG/DL Sodium Level 138 MEQ/L Potassium Level 3.6 MEQ/L Chloride Level 105 MEQ/L Carbon Dioxide Level 29.1 MEQ/L Anion Gap 4 MEQ/L Estimat Glomerular Filtration Rate 70 ML/MIN Lactic Acid Level 1.1 mmol/L [facility] Medical Decision Making Medical Screen Exam Complete: Yes Emergency Medical Condition: Yes Medical Record Reviewed: Yes Interpretation(s) chest x-ray - CONCLUSION: 1. Minimal linear left lower lobe opacity, likely atelectasis/scarring. CT soft tissue neck - CONCLUSION: 1. Bilateral inhomogeneously enhancing masses in the oral pharynx with epicenter in the tonsillar fossa with extension to the base of the tongue and into the nasopharynx. Lymphoproliferative process, either malignant or nonmalignant is suspected. 2. Bilateral jugular chain adenopathy, or prominent on the left than on the right. 3. Bilateral maxillary sinus disease with nodular areas of mucosal thickening anteriorly, left greater than right. No air-fluid levels. Differential Diagnosis strep pharyngitis versus influenza versus pneumonia versus URI Narrative Course 56-year-old male presents to the emergency department for evaluation of fever 24 hours with cough, congestion, sore throat. No evidence of peritonsillar abscesses as uvula is midline on exam. CBC, CMP, strep, influenza, chest x-ray ordered and pending. Lactic acid and blood cultures 2 are ordered and pending. Patient is given normal saline 1 L IV bolus, Tylenol 650 mg by mouth. CBC shows leukocytosis 21.9. CMP shows no acute abnormality. Lactic acid is 1.1. Strep is positive. Influenza is negative. Chest x-ray shows minimal linear left lower lobe opacity, likely atelectasis/scarring. CT soft tissue neck with IV contrast is ordered and shows 1. Bilateral inhomogeneously enhancing masses in the oral pharynx with epicenter in the tonsillar fossa with extension to the base of the tongue and into the nasopharynx. Lymphoproliferative process, either malignant or nonmalignant is suspected; 2. Bilateral jugular chain adenopathy, or prominent on the left than on the right; 3. Bilateral maxillary sinus disease with nodular areas of mucosal thickening anteriorly, left greater than right. No air-fluid levels. Patient is given Unasyn 3 g IV. Discussed the case with attending physician, Dr. Trejo, who recommends admission. [facility] is paged for admission. Dr. Staton accepted admission. Sepsis Criteria SIRS Criteria (2 or more): Temp > 100.9 or < 96.8, WBC > 97538, < 4000 or > 10 % bands Sepsis Criteria (SIRS+source): Infect source susp/known Diagnosis Primary Impression: Leukocytosis Qualified Codes: D72.829 - Elevated white blood cell count, unspecified Additional Impression: Strep pharyngitis Admitting Information Admitting Physician Requests: Observation Scripts No Active Prescriptions or Reported Meds Sandie Best Dec 18, 2016 13:35
[2016-12-18 13:41] VITALS: O2SAT 98
[2016-12-18 13:55] LABS: AUTOMATED NEUTROPHIL # 17.3 TH/MM3 (1.8-7.7); BASOPHIL # 0.1 TH/MM3 (0-0.2); BASOPHIL % 0.3 % (0.0-2.0); EOSINOPHIL # 0.2 TH/MM3 (0-0.4); HEMATOCRIT 40.9 % (39.0-51.0); HEMO FLAGS DIFF FINAL; LYMPH % 11.4 % (9.0-44.0); LYMPHOCYTE # 2.5 TH/MM3 (1.0-4.8); MEAN CELL VOLUME 88.9 FL (80.0-100.0); MEAN CORPUSCULAR HEMOGLOBIN 30.7 PG (27.0-34.0); MEAN CORPUSCULAR HGB CONC 34.5 % (32.0-36.0); MONO % 8.3 % (0.0-8.0); PLATELET COUNT 254 TH/MM3 (150-450); RED CELL DISTRIBUTION WIDTH 13.4 % (11.6-17.2); WHITE BLOOD COUNT 21.9 TH/MM3 (4.0-11.0)
--- NOTE | 2016-12-18 14:03 | RADRPT ---
EXAM DATE/TIME: 12/18/2016 13:38 [facility] COMPARISON: No previous studies available for comparison. INDICATIONS : Fever, difficulty breathing MEDICAL HISTORY : None. SURGICAL HISTORY : None. ENCOUNTER: Initial ACUITY: 1 day PAIN SCORE: 0/10 LOCATION: Bilateral chest FINDINGS: Minimal linear parenchymal opacity in the left lower lung zone. Otherwise, no significant focal pleur al or parenchymal abnormality. Cardiomediastinal contours are within normal limits. Bony thorax is in tact. CONCLUSION: 1. Minimal linear left lower lobe opacity, likely atelectasis/scarring. Bakari Pang MD on December 18, 2016 at 14:01 Board Certified Radiologist. This report was verified electronically.
[2016-12-18 14:11] LABS: ANION GAP 4 MEQ/L (5-15); AST (GOT) 22 U/L (15-37); BICARBONATE 29.1 MEQ/L (21.0-32.0); BLOOD UREA NITROGEN 9 MG/DL (7-18); CHLORIDE 105 MEQ/L (98-107); GLOMERULAR FILTRATION RATE 70 ML/MIN (>89); POTASSIUM 3.6 MEQ/L (3.5-5.1); SODIUM (NA) 138 MEQ/L (136-145)
[2016-12-18 14:16] LABS: ALKALINE PHOSPHATASE 107 U/L (45-117); ALT (GPT) 33 U/L (12-78); TOTAL BILIRUBIN ADULT 0.4 MG/DL (0.2-1.0)
[2016-12-18 15:33] VITALS: BP 146/70; PULSE 79; RESP 16; TEMP 100; O2SAT 99
[2016-12-18] MEDS ORDERED: DEXAMETHASONE SOD PHOS 4 MG/ML VIAL IV PUSH ONE (15:45)
--- NOTE | 2016-12-18 16:26 | RADRPT ---
EXAM DATE/TIME: 12/18/2016 15:13 [facility] COMPARISON: No previous studies available for comparison. INDICATIONS : Left side neck swelling and sore throat, fever, weakness. IV CONTRAST: 73 cc Omnipaque 350 (iohexol) IV RADIATION DOSE: 27.01 CTDIvol (mGy) MEDICAL HISTORY : Cardiovascular disease. SURGICAL HISTORY : None. ENCOUNTER: Initial ACUITY: 1 day PAIN SCALE: 6/10 LOCATION: Left neck TECHNIQUE: Volumetric scanning of the neck was performed. Using automated exposure control and adjustment of th e mA and/or kV according to patient size, radiation dose was kept as low as reasonably achievable to obtain optimal diagnostic quality images. DICOM format image data is available electronically for r eview and comparison. FINDINGS: NASOPHARYNX: There is pre-vertebral soft tissue thickening suggesting lymphoid hypertrophy which extends down into the oral pharynx. OROPHARYNX: Bilateral soft tissue enlargement of the tonsillar fossa bilaterally causes significant narrowing of the oral pharyngeal airway and has an inhomogeneous pattern of enhancement. The bilateral tonsillar masslike densities measure up to 3.3 cm and come in contact to each other in the midline. There is s ome contiguous extension to the base of the tongue bilaterally and into the nasopharynx. LARYNX: The supraglottic, glottic, and infraglottic structures are intact. PARAPHARYNGEAL: The parapharyngeal space is intact. SALIVARY GLANDS: The parotid and submandibular glands are intact. LYMPH NODES: Bilateral adenopathy in the jugular chain involving the suprahyoid and infrahyoid region with numerou s bilateral prominent nodes. The largest on the left side measures 1.8 cm and the largest node on th e right measures 1.4 cm. No necrotic nodes seen. There are are several mildly prominent posterior t riangle nodes on the left side measuring up to 11 mm in size. THYROID: Homogeneous enhancement without evidence of nodule. BONES: Unremarkable. CONCLUSION: 1. Bilateral inhomogeneously enhancing masses in the oral pharynx with epicenter in the tonsillar fos sa with extension to the base of the tongue and into the nasopharynx. Lymphoproliferative process, e ither malignant or nonmalignant is suspected. 2. Bilateral jugular chain adenopathy, or prominent on the left than on the right. 3. Bilateral maxillary sinus disease with nodular areas of mucosal thickening anteriorly, left greate r than right. No air-fluid levels. Caio Elias MD on December 18, 2016 at 16:18 Board Certified Radiologist. This report was verified electronically.
[2016-12-18] MEDS ORDERED: AMPICILLIN-SULBACTAM INJ 3 GM in SODIUM CHLORIDE 0.9% INJ 100 ML IV ONE (16:45)
[2016-12-18] MEDS ORDERED: NALOXONE HCL 0.4 MG/ML AMP IV PUSH PRN (18:00)
[2016-12-18] MEDS ORDERED: MAGNESIUM HYDROXIDE SUSP 30 ML CUP PO PRN (18:00)
[2016-12-18] MEDS ORDERED: SODIUM CHLORIDE 0.9% FLUSH 10 ML FLUSH IV FLUSH PRN (18:00)
[2016-12-18] MEDS ORDERED: ONDANSETRON HCL 4 MG/2 ML VIAL IVP PRN (18:00)
[2016-12-18] MEDS ORDERED: SENNOSIDES 8.6 MG TAB PO PRN (18:00)
[2016-12-18] MEDS ORDERED: MORPHINE SULFATE 4 MG/ML INJ IV PUSH PRN (18:00)
[2016-12-18] MEDS ORDERED: BISACODYL 10 MG SUPP RECTAL PRN (18:00)
[2016-12-18] MEDS ORDERED: ACETAMINOPHEN 325 MG TAB PO PRN (18:00)
[2016-12-18] MEDS ORDERED: LACTULOSE SYRUP 20 GM/30 ML CUP PO PRN (18:00)
--- NOTE | 2016-12-18 18:00 | HHI.HP ---
[facility] No Primary Care Physician Admission Diagnosis Diagnoses: Chief Complaint: fever, sore throat Travel History International Travel<30 Days: No Contact w/Intl Traveler <30 Da: No Traveled to Known Affected Are: No Sepsis Criteria SIRS Criteria (2 or more): Temp > 100.9 or < 96.8, WBC > 00612, < 4000 or > 10 % bands Sepsis Criteria (SIRS+source): Infect source susp/known Criteria Outcome: Meets sepsis criteria History of Present Illness Written by Erin Jeffery, acting as scribe for Dr. Staton on 12/18/16 at 17: 55. 56-year-old male with history of tobacco use, hypertension not on medications, presents with a 1 day history of fever, sore throat, cough, body aches. The patient reports all of a sudden yesterday morning he had severe chills, subjective fevers, and full body aches. He also noticed nasal congestion, odynophagia, dysphagia, and productive cough. He is still able to tolerate some liquids. He report diffuse lymph node swelling throughout the neck. He has noticed his voice has changed. He denies any sick contacts and is not around children regularly. He took some unknown pain medication with minimal relief. He has never experienced this before. He denies any other medical complaints including no chest pain, palpitations, shortness of breath, wheezing, abdominal pain, nausea/vomiting, or diarrhea. Review of Systems Except as stated in HPI: all other systems reviewed are Neg Past Family Social History Past Medical History Hypertension, not on medications Past Surgical History Cranial plate Reported Medications Does not take any medications on a regular basis. Allergies: Coded Allergies: No Known Allergies (Verified , 12/18/16) Active Ordered Medications Current Medications Medications (Trade) Dose Ordered Sig/Bisi Route Start Time Stop Time Status Last Admin (NS Flush) 2 ml UNSCH PRN IVF 12/18/16 13:30 Family History Mother with kidney failure Father with colon cancer Family history also positive for hypertension Social History Smokes tobacco, 5-6 cigarettes daily Very occasional alcohol use Denies any illicit drug use Physical Exam Vital Signs Vital Signs Date Time Temp Pulse Resp B/P (MAP) Pulse Ox O2 Delivery O2 Flow Rate FiO2 12/18/16 15:33 100.0 79 16 146/70 (95) 99 Room Air 12/18/16 13:41 98 Room Air 12/18/16 13:27 80 18 96 Room Air 12/18/16 13:15 101.4 82 18 142/78 (99) 96 Physical Exam GENERAL: Well-nourished, well-developed pleasant middle aged male patient in [facility]. SKIN: Warm and dry. No rash. HEAD: Normocephalic. Atraumatic. EYES: Pupils equal and round. No scleral icterus. No injection or drainage. ENT: No nasal bleeding or discharge. Mucous membranes pink and moist. Significant tonsillar edema bilaterally, touching uvula, Mallampati Class IV. No tonsillar exudates. NECK: Supple. Trachea midline. Diffuse tender anterior cervical, submandibular , submental lymphadenopathy bilaterally. CARDIOVASCULAR: Regular rate and rhythm. S1, S2 noted. No murmur appreciated. RESPIRATORY: No accessory muscle use. Clear to auscultation. No wheezing or stridor. Breath sounds equal bilaterally. GASTROINTESTINAL: Abdomen soft, non-tender, nondistended. Normoactive bowel sounds x4. MUSCULOSKELETAL: No obvious deformities. Extremities without clubbing, cyanosis , or edema. NEUROLOGICAL: Awake and alert. No obvious cranial nerve deficits. Motor grossly within normal limits. Normal speech however with muffled hot potato voice. PSYCHIATRIC: Appropriate mood and affect; insight and judgment normal. Laboratory Laboratory Tests Test 12/18/16 13:20 White Blood Count 21.9 Red Blood Count 4.60 Hemoglobin 14.1 Hematocrit 40.9 Mean Corpuscular Volume 88.9 Mean Corpuscular Hemoglobin 30.7 Mean Corpuscular Hemoglobin Concent 34.5 Red Cell Distribution Width 13.4 Platelet Count 254 Mean Platelet Volume 8.4 Neutrophils (%) (Auto) 79.0 Lymphocytes (%) (Auto) 11.4 Monocytes (%) (Auto) 8.3 Eosinophils (%) (Auto) 1.0 Basophils (%) (Auto) 0.3 Neutrophils # (Auto) 17.3 Lymphocytes # (Auto) 2.5 Monocytes # (Auto) 1.8 Eosinophils # (Auto) 0.2 Basophils # (Auto) 0.1 CBC Comment DIFF FINAL Differential Comment Blood Urea Nitrogen 9 Creatinine 1.29 Random Glucose 122 Total Protein 7.6 Albumin 3.5 Calcium Level 8.8 Alkaline Phosphatase 107 Aspartate Amino Transf (AST/SGOT) 22 Alanine Aminotransferase (ALT/SGPT) 33 Total Bilirubin 0.4 Sodium Level 138 Potassium Level 3.6 Chloride Level 105 Carbon Dioxide Level 29.1 Anion Gap 4 Estimat Glomerular Filtration Rate 70 Lactic Acid Level 1.1 Date/Time Source Procedure Growth Status 12/18/16 13:20 Blood Peripheral Aerobic Blood Culture Pending Received 12/18/16 13:20 Blood Peripheral Anaerobic Blood Culture Pending Received 12/18/16 13:20 Nasal Aspirate Influenza Types A,B Antigen (DYLAN) - Final NEGATIVE FOR FLU A AND B ANTIGEN.... Complete Result Diagram: 12/18/16 1320 12/18/[address]: Bilateral inhomogeneously enhancing masses in the oral pharynx with epicenter in the tonsillar fossa with extension to the base of the tongue and into the nasopharynx. Lymphoproliferative process, either malignant or nonmalignant is suspected. Bilateral jugular chain adenopathy, or prominent on the left than on the right. Bilateral maxillary sinus disease with nodular areas of mucosal thickening anteriorly, left greater than right. No air-fluid levels. Caprini VTE Risk Assessment Caprini VTE Risk Assessment: No/Low Risk (score <= 1) Caprini Risk Assessment Model Point Value = 1 Point Value = 2 Point Value = 3 Point Value = 5 Age 41-60 Minor surgery BMI > 25 kg/m2 Swollen legs Varicose veins or History of unexplained or recurrent spontaneous Oral contraceptives or hormone replacement Sepsis (< 1 month) Serious lung disease, including pneumonia (< 1 month) Abnormal pulmonary function Acute myocardial infarction Congestive heart failure (< 1 month) History of inflammatory bowel disease Medical patient at bed rest Age 61-74 Arthroscopic surgery Major open surgery (> 45 min) Laparoscopic surgery (> 45 min) Malignancy Confined to bed (> 72 hours) Immobilizing plaster cast Central venous access Age >= 75 History of VTE Family history of VTE Factor V Leiden Prothrombin [id number] Lupus anticoagulant Anticardiolipin antibodies Elevated serum homocysteine Heparin-induced thrombocytopenia Other congenital or acquired thrombophilia Stroke (< 1 month) Elective arthroplasty Hip, pelvis, or leg fracture Acute spinal cord injury (< 1 month) Prophylaxis Regimen Total Risk Factor Score Risk Level Prophylaxis Regimen 0-1 Low Early ambulation 2 Moderate Order ONE of the following: *Sequential Compression Device (SCD) *Heparin 5000 units SQ BID 3-4 Higher Order ONE of the following medications: *Heparin 5000 units SQ TID *Enoxaparin/Lovenox 40 mg SQ daily (WT < 150 kg, CrCl > 30 mL/min) *Enoxaparin/Lovenox 30 mg SQ daily (WT < 150 kg, CrCl > 10-29 mL/min) *Enoxaparin/Lovenox 30 mg SQ BID (WT < 150 kg, CrCl > 30 mL/min) AND/OR *Sequential Compression Device (SCD) 5 or more Highest Order ONE of the following medications: *Heparin 5000 units SQ TID (Preferred with Epidurals) *Enoxaparin/Lovenox 40 mg SQ daily (WT < 150 kg, CrCl > 30 mL/min) *Enoxaparin/Lovenox 30 mg SQ daily (WT < 150 kg, CrCl > 10-29 mL/min) *Enoxaparin/Lovenox 30 mg SQ BID (WT < 150 kg, CrCl > 30 mL/min) AND *Sequential Compression Device (SCD) Assessment and Plan Problem List: (1) Sepsis ICD Code: A41.9 - Sepsis, unspecified organism (2) Strep pharyngitis ICD Code: J02.0 - Streptococcal pharyngitis Status: Acute (3) Leukocytosis ICD Code: D72.829 - Elevated white blood cell count, unspecified Status: Acute (4) HTN (hypertension) ICD Code: I10 - Essential (primary) hypertension Status: Chronic Assessment and Plan 56-year-old male with history of tobacco use, hypertension not on meds, presents with a 1 day history of fever, sore throat, cough, body aches. Sepsis with Acute Strep Pharyngitis/Tonsillitis: Meets sepsis criteria with + leukocytosis WBC 21.9K, Tmax 101.4, and source-pharyngitis/tonsillitis. Lactic acid 1.1. Strep screen positive for Group A Strep. Influenza negative. Neck CT images reviewed, shows Bilateral inhomogeneously enhancing masses in the oral pharynx with epicenter in the tonsillar fossa with extension to the base of the tongue and into the nasopharynx, Lymphoproliferative process, either malignant or nonmalignant is suspected; Bilateral jugular chain adenopathy, or prominent on the left than on the right; Bilateral maxillary sinus disease with nodular areas of mucosal thickening anteriorly, left greater than right; No air-fluid levels. -Continue on steroids with IV Solu-medrol 40mg q6h -Continue antibiotics with IV Unasyn -Monitor blood cultures -Supportive treatment with IVF, antiemetics, Tylenol prn fever, and pain control with Lortab prn and IV morphine prn breakthrough pain -Clear liquid diet for now -Monitor closely for improvement, consider ENT consult if needed Hypertension: chronic, stable, BP fairly well controlled. Patient not on medications at home. 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 I, Dr. Leona Staton personally performed the history, physical exam, and medical decision making; and confirmed the accuracy of the information in the transcribed note. Authenticated by Dr. Leona Staton on 12/18/16 at 1750. Discussed Condition With Patient, ER [employer] Physician Certification 2 Midnight Certification Type: Admission for Inpatient Services Order for Inpatient Services The services are ordered in accordance with Medicare regulations or non- Medicare payer requirements, as applicable. In the case of services not specified as inpatient-only, they are appropriately provided as inpatient services in accordance with the 2-midnight benchmark. Estimated LOS (days): 3 days is the estimated time the patient will need to remain in the hospital, assuming treatment plan goals are met and no additional complications. Post-Hospital Plan: Home Problem Qualifiers (1) Leukocytosis: Qualified Codes: D72.829 - Elevated white blood cell count, unspecified Erin Jeffery PA-C Dec 18, 2016 18:00 Leona Staton MD Dec 18, 2016 18:03
[2016-12-18] MEDS: SODIUM CHLOR 0.9% 1000 ML INJ 1,000 ML IV SCH (18:30)
[2016-12-18 18:31] VITALS: BP 138/81; PULSE 83; RESP 16; TEMP 99.9; O2SAT 95
[2016-12-18 19:29] VITALS: BP 134/70; PULSE 71; RESP 16; O2SAT 98
[2016-12-18] MEDS: SODIUM CHLORIDE 0.9% FLUSH 10 ML FLUSH IV FLUSH SCH (20:56)
[2016-12-18] MEDS: ACETAMINOPHEN/HYDROcodone 325 MG/5 MG TAB PO PRN (21:18)
[2016-12-18] MEDS ORDERED: AMPICILLIN-SULBACTAM INJ 3 GM VIAL IM SCH (23:00)
[2016-12-18] MEDS: methylPREDNISolone SOD SUCC 40 MG/1 ML VIAL IV PUSH SCH (23:05)
[2016-12-18] MEDS: AMPICILLIN-SULBACTAM INJ 3 GM in SODIUM CHLORIDE 0.9% INJ 100 ML IV SCH (23:06)
[2016-12-19 00:39] VITALS: BP 113/64; PULSE 66; RESP 16; TEMP 96.9; O2SAT 95
[2016-12-19] MEDS: SODIUM CHLOR 0.9% 1000 ML INJ 1,000 ML IV SCH ×3 (03:50→16:20)
[2016-12-19] MEDS: methylPREDNISolone SOD SUCC 40 MG/1 ML VIAL IV PUSH SCH ×4 (04:36→22:45)
[2016-12-19] MEDS: AMPICILLIN-SULBACTAM INJ 3 GM in SODIUM CHLORIDE 0.9% INJ 100 ML IV SCH ×4 (04:37→22:45)
[2016-12-19] MEDS: ACETAMINOPHEN/HYDROcodone 325 MG/5 MG TAB PO PRN ×4 (04:38→20:25)
[2016-12-19 07:01] LABS: AUTOMATED NEUTROPHIL # 20.8 TH/MM3 (1.8-7.7); BASOPHIL % 0.1 % (0.0-2.0); HEMATOCRIT 40.6 % (39.0-51.0); HEMO FLAGS DIFF FINAL; LYMPH % 6.1 % (9.0-44.0); LYMPHOCYTE # 1.4 TH/MM3 (1.0-4.8); MEAN CELL VOLUME 90.4 FL (80.0-100.0); MEAN CORPUSCULAR HEMOGLOBIN 30.7 PG (27.0-34.0); MEAN CORPUSCULAR HGB CONC 33.9 % (32.0-36.0); MONO % 3.2 % (0.0-8.0); NEUT % 90.6 % (16.0-70.0); PLATELET COUNT 244 TH/MM3 (150-450); RED BLOOD COUNT 4.49 MIL/MM3 (4.50-5.90); RED CELL DISTRIBUTION WIDTH 13.7 % (11.6-17.2)
[2016-12-19 07:21] LABS: BICARBONATE 24.5 MEQ/L (21.0-32.0); POTASSIUM 4.3 MEQ/L (3.5-5.1)
[2016-12-19 08:00] VITALS: BP 126/72; PULSE 60; RESP 17; TEMP 96.2; O2SAT 96
[2016-12-19] MEDS: SODIUM CHLORIDE 0.9% FLUSH 10 ML FLUSH IV FLUSH SCH ×2 (09:00→20:00)
--- NOTE | 2016-12-19 11:30 | HHI.PR ---
Subjective Remarks Patient reports feeling slightly better today, he is able to swallow better but still having some discomfort with swallowing. No fevers or chills. Objective Vitals Vital Signs Date Time Temp Pulse Resp B/P (MAP) Pulse Ox O2 Delivery O2 Flow Rate FiO2 12/19/16 08:00 96.2 60 17 126/72 (90) 96 12/19/16 05:38 18 12/19/16 00:39 96.9 66 16 113/64 (80) 95 12/18/16 19:29 71 16 134/70 (91) 98 Room Air 12/18/16 18:31 99.9 83 16 138/81 (100) 95 Room Air 12/18/16 15:33 100.0 79 16 146/70 (95) 99 Room Air 12/18/16 13:41 98 Room Air 12/18/16 13:27 80 18 96 Room Air 12/18/16 13:15 101.4 82 18 142/78 (99) 96 I/O 12/18/16 12/18/16 12/18/16 12/19/16 12/19/16 12/19/16 07:00 15:00 23:00 07:00 15:00 23:00 Intake Total 1000 ml 1350 ml 1200 ml Balance 1000 ml 1350 ml 1200 ml Intake Oral 250 ml IV Total 1000 ml 1100 ml 1200 ml # Voids 0 Result Diagram: 12/19/16 0600 12/19/16 0600 Imaging Last Impressions Chest X-Ray 12/18/16 1329 Signed Impressions: Service Date/Time: Sunday, December 18, 2016 13:38 - CONCLUSION: 1. Minimal linear left lower lobe opacity, likely atelectasis/scarring. Bakari Pang MD Neck CT 12/18/16 0000 Signed Impressions: Service Date/Time: Sunday, December 18, 2016 15:13 - CONCLUSION: 1. Bilateral inhomogeneously enhancing masses in the oral pharynx with epicenter in the tonsillar fossa with extension to the base of the tongue and into the nasopharynx. Lymphoproliferative process, either malignant or nonmalignant is suspected. 2. Bilateral jugular chain adenopathy, or prominent on the left than on the right. 3. Bilateral maxillary sinus disease with nodular areas of mucosal thickening anteriorly, left greater than right. No air-fluid levels. Caio Elias MD Objective Remarks GENERAL: This is a well-nourished, well-developed patient, in no apparent distress. ENT: Marked tonsillar edema bilaterally, slightly improved compared to yesterday. No exudates. Bilateral cervical and submental lymphadenopathy. CARDIOVASCULAR: Normal rate and regular rhythm without murmurs, gallops, or rubs. RESPIRATORY: Good respiratory efforts. Breath sounds equal and clear to auscultation bilaterally. GASTROINTESTINAL: Abdomen soft, non-tender, non-distended. Normal active bowel sounds MUSCULOSKELETAL: Extremities without cyanosis, or edema. NEURO: Alert & Oriented x4 to person, place, time, situation. Moves all ext x4 PSYCH: Appropriate mood and affect. A/P Problem List: (1) Sepsis ICD Code: A41.9 - Sepsis, unspecified organism (2) Strep pharyngitis ICD Code: J02.0 - Streptococcal pharyngitis Status: Acute (3) Leukocytosis ICD Code: D72.829 - Elevated white blood cell count, unspecified Status: Acute (4) HTN (hypertension) ICD Code: I10 - Essential (primary) hypertension Status: Chronic Assessment and Plan 56-year-old male with history of tobacco use, hypertension not on meds, presents with a 1 day history of fever, sore throat, cough, body aches. Sepsis with Acute Strep Pharyngitis/Tonsillitis: Meets sepsis criteria with + leukocytosis WBC 21.9K, Tmax 101.4, and source-pharyngitis/tonsillitis. Lactic acid 1.1. Strep screen positive for Group A Strep. Influenza negative. Neck CT images reviewed, shows Bilateral inhomogeneously enhancing masses in the oral pharynx with epicenter in the tonsillar fossa with extension to the base of the tongue and into the nasopharynx, Lymphoproliferative process, either malignant or nonmalignant is suspected; Bilateral jugular chain adenopathy, or prominent on the left than on the right; Bilateral maxillary sinus disease with nodular areas of mucosal thickening anteriorly, left greater than right; No air-fluid levels. -Continue on steroids with IV Solu-medrol 40mg q6h -Continue antibiotics with IV Unasyn -Monitor blood cultures -Supportive treatment with IVF, antiemetics, Tylenol prn fever, and pain control with Lortab prn and IV morphine prn breakthrough pain -Clear liquid diet for now -Monitor closely for continued improvement. If not significantly better by tomorrow, would consult ENT. Hypertension: chronic, stable, BP fairly well controlled. Patient not on medications at home. 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
[2016-12-19 12:00] VITALS: BP 139/80; PULSE 63; RESP 19; TEMP 96.7; O2SAT 95
[2016-12-19 16:00] VITALS: BP 134/66; PULSE 57; RESP 16; TEMP 96.1; O2SAT 97
[2016-12-19 20:29] VITALS: BP 137/83; PULSE 55; RESP 18; TEMP 96.3; O2SAT 99
[2016-12-20 00:07] VITALS: BP 112/57; PULSE 78; RESP 20; TEMP 96.6; O2SAT 98
[2016-12-20] MEDS: AMPICILLIN-SULBACTAM INJ 3 GM in SODIUM CHLORIDE 0.9% INJ 100 ML IV SCH ×4 (03:45→21:58)
[2016-12-20] MEDS: methylPREDNISolone SOD SUCC 40 MG/1 ML VIAL IV PUSH SCH ×4 (03:45→21:58)
[2016-12-20 08:00] VITALS: BP 134/69; PULSE 53; RESP 16; TEMP 95.7; O2SAT 93
[2016-12-20] MEDS: SODIUM CHLORIDE 0.9% FLUSH 10 ML FLUSH IV FLUSH SCH ×2 (09:00→21:58)
[2016-12-20 12:00] VITALS: BP 178/93; PULSE 58; RESP 19; TEMP 95.8; O2SAT 97
--- NOTE | 2016-12-20 13:37 | HHI.PR ---
Subjective Remarks Patient reports is feeling better today. He would like to advance diet. Throat pain is less. Objective Vitals Vital Signs Date Time Temp Pulse Resp B/P (MAP) Pulse Ox O2 Delivery O2 Flow Rate FiO2 12/20/16 12:00 95.8 58 19 178/93 (121) 97 12/20/16 08:00 95.7 53 16 134/69 (90) 93 12/20/16 00:07 96.6 78 20 112/57 (75) 98 12/19/16 21:25 18 12/19/16 20:29 96.3 55 18 137/83 (101) 99 12/19/16 16:00 96.1 57 16 134/66 (88) 97 I/O 12/19/16 12/19/16 12/19/16 12/20/16 12/20/16 12/20/16 06:59 14:59 22:59 06:59 14:59 22:59 Intake Total 1200 ml 100 ml 3615 ml 680 ml Balance 1200 ml 100 ml 3615 ml 680 ml Intake Oral 1515 ml 580 ml IV Total 1200 ml 100 ml 2100 ml 100 ml # Voids 0 9 3 # Bowel Movements 0 Result Diagram: 12/19/16 0600 12/19/16 0600 Objective Remarks GENERAL: This is a well-nourished, well-developed patient, in no apparent distress. ENT: Marked tonsillar edema bilaterally, slightly improved compared to yesterday. No exudates. Bilateral cervical and submental lymphadenopathy. CARDIOVASCULAR: Normal rate and regular rhythm without murmurs, gallops, or rubs. RESPIRATORY: Good respiratory efforts. Breath sounds equal and clear to auscultation bilaterally. GASTROINTESTINAL: Abdomen soft, non-tender, non-distended. Normal active bowel sounds MUSCULOSKELETAL: Extremities without cyanosis, or edema. NEURO: Alert & Oriented x4 to person, place, time, situation. Moves all ext x4 PSYCH: Appropriate mood and affect. A/P Problem List: (1) Sepsis ICD Code: A41.9 - Sepsis, unspecified organism (2) Strep pharyngitis ICD Code: J02.0 - Streptococcal pharyngitis Status: Acute (3) Leukocytosis ICD Code: D72.829 - Elevated white blood cell count, unspecified Status: Acute (4) HTN (hypertension) ICD Code: I10 - Essential (primary) hypertension Status: Chronic Assessment and Plan 56-year-old male with history of tobacco use, hypertension not on meds, presents with a 1 day history of fever, sore throat, cough, body aches. Sepsis with Acute Strep Pharyngitis/Tonsillitis: Meets sepsis criteria with + leukocytosis WBC 21.9K, Tmax 101.4, and source-pharyngitis/tonsillitis. Lactic acid 1.1. Strep screen positive for Group A Strep. Influenza negative. Neck CT images reviewed, shows Bilateral inhomogeneously enhancing masses in the oral pharynx with epicenter in the tonsillar fossa with extension to the base of the tongue and into the nasopharynx, Lymphoproliferative process, either malignant or nonmalignant is suspected; Bilateral jugular chain adenopathy, or prominent on the left than on the right; Bilateral maxillary sinus disease with nodular areas of mucosal thickening anteriorly, left greater than right; No air-fluid levels. -Continue on steroids with IV Solu-medrol 40mg q6h -Continue antibiotics with IV Unasyn -Monitor blood cultures -Supportive treatment with IVF, antiemetics, Tylenol prn fever, and pain control with Lortab prn and IV morphine prn breakthrough pain -Clear liquid diet for now -Improving. Continue IV antibiotics for 1 more day. Plan to transition to oral tomorrow and possibly discharge. - Advanced to soft diet Hypertension: chronic, stable, BP fairly well controlled. Patient not on medications at home. 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
[2016-12-20 16:00] VITALS: BP 166/79; PULSE 64; RESP 17; TEMP 96.8; O2SAT 95
[2016-12-20] MEDS: SODIUM CHLOR 0.9% 1000 ML INJ 1,000 ML IV SCH ×2 (17:10→21:58)
[2016-12-20 20:00] VITALS: BP 155/70; PULSE 60; RESP 20; TEMP 97.8; O2SAT 95
[2016-12-20] MEDS: ACETAMINOPHEN/HYDROcodone 325 MG/5 MG TAB PO PRN (22:10)
[2016-12-21] VITALS (7 sets, daily range): BP systolic 172–200; BP diastolic 80–97; PULSE 50–68; RESP 17–20; TEMP 95.4–97.6; O2SAT 94–97
[2016-12-21] MEDS: AMPICILLIN-SULBACTAM INJ 3 GM in SODIUM CHLORIDE 0.9% INJ 100 ML IV SCH ×4 (04:02→23:48)
[2016-12-21] MEDS: methylPREDNISolone SOD SUCC 40 MG/1 ML VIAL IV PUSH SCH ×2 (04:08→09:22)
[2016-12-21] MEDS: SODIUM CHLOR 0.9% 1000 ML INJ 1,000 ML IV SCH (04:10)
[2016-12-21] MEDS ORDERED: ENALAPRILAT 1.25 MG/ML VIAL IV PUSH ONE (04:30)
[2016-12-21] MEDS ORDERED: LISINOPRIL 5 MG TAB PO ONE (06:45)
[2016-12-21 07:10] LABS: HEMATOCRIT 42.2 % (39.0-51.0); MEAN CELL VOLUME 89.9 FL (80.0-100.0); MEAN CORPUSCULAR HEMOGLOBIN 30.5 PG (27.0-34.0); MEAN CORPUSCULAR HGB CONC 33.9 % (32.0-36.0); PLATELET COUNT 266 TH/MM3 (150-450); RED BLOOD COUNT 4.69 MIL/MM3 (4.50-5.90); RED CELL DISTRIBUTION WIDTH 13.4 % (11.6-17.2); WHITE BLOOD COUNT 33.2 TH/MM3 (4.0-11.0)
[2016-12-21 07:16] LABS: REVIEW FLAG FINAL
[2016-12-21] MEDS: SODIUM CHLORIDE 0.9% FLUSH 10 ML FLUSH IV FLUSH SCH ×2 (09:22→20:40)
[2016-12-21] MEDS: cloNIDine HCL 0.1 MG TAB PO PRN ×2 (09:30→16:25)
--- NOTE | 2016-12-21 13:29 | HHI.PR ---
Subjective Remarks Patient reports feeling about the same as yesterday. Painful to swallow. No fevers. BP uncontrolled. Objective Vitals Vital Signs Date Time Temp Pulse Resp B/P (MAP) Pulse Ox O2 Delivery O2 Flow Rate FiO2 12/21/16 12:00 96.7 68 19 189/90 (123) 94 12/21/16 08:00 97.6 51 18 190/90 (123) 94 12/21/16 06:31 52 20 172/80 (110) 95 12/21/16 04:10 97.0 53 20 178/80 (112) 95 12/21/16 00:00 97.4 50 18 183/88 (119) 94 12/20/16 20:00 97.8 60 20 155/70 (98) 95 12/20/16 16:00 96.8 64 17 166/79 (108) 95 I/O 12/20/16 12/20/16 12/20/16 12/21/16 12/21/16 12/21/16 07:00 15:00 23:00 07:00 15:00 23:00 Intake Total 680 ml 100 ml 1100 ml 618 ml 100 ml Balance 680 ml 100 ml 1100 ml 618 ml 100 ml Intake Oral 580 ml 900 ml IV Total 100 ml 100 ml 200 ml 618 ml 100 ml # Voids 3 8 4 # Bowel Movements 1 Result Diagram: 12/21/16 0530 12/19/16 0600 Objective Remarks GENERAL: This is a well-nourished, well-developed patient, in no apparent distress. ENT: Marked tonsillar edema bilaterally, stable compared to yesterday. No exudates. Bilateral cervical and submental lymphadenopathy. CARDIOVASCULAR: Normal rate and regular rhythm without murmurs, gallops, or rubs. RESPIRATORY: Good respiratory efforts. Breath sounds equal and clear to auscultation bilaterally. GASTROINTESTINAL: Abdomen soft, non-tender, non-distended. Normal active bowel sounds MUSCULOSKELETAL: Extremities without cyanosis, or edema. NEURO: Alert & Oriented x4 to person, place, time, situation. Moves all ext x4 PSYCH: Appropriate mood and affect. A/P Problem List: (1) Sepsis ICD Code: A41.9 - Sepsis, unspecified organism (2) Strep pharyngitis ICD Code: J02.0 - Streptococcal pharyngitis Status: Acute (3) Leukocytosis ICD Code: D72.829 - Elevated white blood cell count, unspecified Status: Acute (4) HTN (hypertension) ICD Code: I10 - Essential (primary) hypertension Status: Chronic Assessment and Plan 56-year-old male with history of tobacco use, hypertension not on meds, presents with a 1 day history of fever, sore throat, cough, body aches. Neck CT concerning for oropharyngeal mass with lymphadenopathy. Positive for group A strep. Sepsis with Acute Strep Pharyngitis/Tonsillitis: Meets sepsis criteria with + leukocytosis WBC 21.9K, Tmax 101.4, and source-pharyngitis/tonsillitis. Lactic acid 1.1. Strep screen positive for Group A Strep. Influenza negative. Neck CT images reviewed, shows Bilateral inhomogeneously enhancing masses in the oral pharynx with epicenter in the tonsillar fossa with extension to the base of the tongue and into the nasopharynx, Lymphoproliferative process, either malignant or nonmalignant is suspected; Bilateral jugular chain adenopathy, or prominent on the left than on the right; Bilateral maxillary sinus disease with nodular areas of mucosal thickening anteriorly, left greater than right; No air-fluid levels per radiologist read. - Initially had some improvement but does not appear to be making any further progress at this time regarding oropharyngeal swelling and pain. - Consult ENT - Continue antibiotics with IV Unasyn -Monitor blood cultures - Switch to oral steroid, prednisone 20 mg twice a day. -Supportive treatment with IVF, antiemetics, Tylenol prn fever, and pain control with Lortab prn and IV morphine prn breakthrough pain - Tolerating soft diet for now. Hypertension: Uncontrolled today. Has not been on any medications at home. High-dose steroid may be contributing. -Start lisinopril. Monitor BP. Clonidine as needed. Leukocytosis: He does have an infectious process, as been on steroid as well but leukocytosis significantly worsening. - Continue antibiotics as above. Follow-up CBC in a.m. 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
[2016-12-21] MEDS: LISINOPRIL 10 MG TAB PO SCH (15:00)
[2016-12-21] MEDS ORDERED: ENALAPRILAT 1.25 MG/ML VIAL IV PUSH PRN (18:30)
[2016-12-21] MEDS ORDERED: ENALAPRILAT 2.5 MG/2 ML VIAL IV PUSH ONE (18:30)
[2016-12-21] MEDS: ACETAMINOPHEN/HYDROcodone 325 MG/5 MG TAB PO PRN (20:39)
[2016-12-21] MEDS: predniSONE 20 MG TAB PO SCH (20:39)
[2016-12-22] VITALS: BP 150/93; PULSE 80; RESP 17; TEMP 97.3; O2SAT 95
[2016-12-22] MEDS: AMPICILLIN-SULBACTAM INJ 3 GM in SODIUM CHLORIDE 0.9% INJ 100 ML IV SCH ×4 (05:37→23:19)
[2016-12-22] MEDS: ACETAMINOPHEN/HYDROcodone 325 MG/5 MG TAB PO PRN ×4 (05:56→20:20)
[2016-12-22 08:00] VITALS: BP 145/96; PULSE 72; RESP 17; TEMP 97.4; O2SAT 93
[2016-12-22] MEDS: predniSONE 20 MG TAB PO SCH ×2 (08:14→20:20)
[2016-12-22] MEDS: LISINOPRIL 10 MG TAB PO SCH (08:14)
[2016-12-22] MEDS: SODIUM CHLORIDE 0.9% FLUSH 10 ML FLUSH IV FLUSH SCH ×2 (08:15→20:21)
[2016-12-22 11:01] LABS: HEMATOCRIT 45.9 % (39.0-51.0); MEAN CELL VOLUME 89.4 FL (80.0-100.0); MEAN CORPUSCULAR HEMOGLOBIN 30.6 PG (27.0-34.0); MEAN CORPUSCULAR HGB CONC 34.2 % (32.0-36.0); PLATELET COUNT 283 TH/MM3 (150-450); RED BLOOD COUNT 5.14 MIL/MM3 (4.50-5.90); RED CELL DISTRIBUTION WIDTH 13.5 % (11.6-17.2); WHITE BLOOD COUNT 34.1 TH/MM3 (4.0-11.0)
[2016-12-22 11:09] LABS: REVIEW FLAG FINAL
--- NOTE | 2016-12-22 11:20 | MB ---
cc: SANDEEP WHITE MD DATE OF CONSULTATION: 12/22/2016 CHIEF COMPLAINT Sore throat. HISTORY OF PRESENT ILLNESS This is a 56-year-old male who was admitted to the hospital for severe sore throat as well as some body aches and fever and a cough. The patient reports that he has had severe chills and fevers at home. He was admitted because he was having difficulty with swallowing and significant pain. He was able to tolerate liquids and is able to tolerate p.o. intake at this time, however, upon admission it was much worse. He is currently reporting to me that he feels like his throat pain is about 7/10. On admission he felt like it was a 10/10. However, even though it is a little improved he does not feel like it is significantly better. He denies having any current or past history of tonsil problems or recurrent pharyngitis. PAST MEDICAL HISTORY Hypertension. PAST SURGICAL HISTORY Cranial plate placement. MEDICATIONS He is not on any current medications. ALLERGIES He has no known drug allergies. SOCIAL HISTORY He does smoke about a quarter pack of cigarettes daily. He reports he has very rare use of alcohol and denies any illicit drugs. PHYSICAL EXAMINATION GENERAL: The patient is alert and oriented x3, in no acute distress. VITAL SIGNS: He is currently afebrile and vital signs are stable. HEENT: Exam reveals an oral cavity with pink, healthy-appearing mucosa, midline uvula and 4+ tonsil hypertrophy. There is no significant exudate noted on the tonsils. There are no ulcerations. Flexible laryngoscopy at bedside reveals 4+ tonsils down to the oropharynx with normal-appearing base of tongue. The epiglottis is normal-appearing as well as the endolarynx. He has a very adequate airway. NECK: Exam reveals bilateral palpable adenopathy, worse in level II bilaterally. It seems to be somewhat better than it was on the CAT scan, however, having not examined him at the time of the CAT scan I cannot say this for sure. HEART: Regular rate and rhythm. LUNGS: Clear to auscultation. ASSESSMENT AND PLAN Patient with significant tonsillar hypertrophy bilaterally as well as bilateral adenopathy. Although on the CAT scan there is questionable lesion of the left tonsil I am unable to appreciate that on exam. His tonsils are very soft, however, tender to palpation decreasing the concern for a malignancy, however, we cannot completely rule this out at this time. I do feel that this is most likely an infectious process. I do not see any evidence of a peritonsillar abscess at this time. It is possible that this is a mononucleosis with his full body aches and shaking chills. Would recommend ruling out mono or Ernesto-Ramirez virus infection. Otherwise continue supportive care. At this time I do not recommend tonsillectomy as the patient is actively infected. However, the patient would benefit from work-up with ENT once he has started to resolve from this current process for further evaluation to rule out a possible indolent malignancy of the tonsils noted on the CAT scan. Thank you for this consultation. Sandeep White AT/BT /10:43 AM /11:02 AM
[2016-12-22 11:21] LABS: BICARBONATE 31.5 MEQ/L (21.0-32.0)
[2016-12-22 11:23] LABS: POTASSIUM 4.3 MEQ/L (3.5-5.1)
[2016-12-22 12:00] VITALS: BP 150/87; PULSE 73; RESP 16; TEMP 97.5; O2SAT 93
--- NOTE | 2016-12-22 15:15 | HHI.PR ---
Subjective Remarks Patient reports sore throat is better. Pain is about a 5/10. No fevers Objective Vitals Vital Signs Date Time Temp Pulse Resp B/P (MAP) Pulse Ox O2 Delivery O2 Flow Rate FiO2 12/22/16 12:00 97.5 73 16 150/87 (108) 93 12/22/16 08:00 97.4 72 17 145/96 (112) 93 12/22/16 00:00 97.3 80 17 150/93 (112) 95 12/21/16 20:00 96.8 55 17 196/97 (130) 95 12/21/16 16:00 95.4 53 19 200/90 (126) 97 I/O 12/21/16 12/21/16 12/21/16 12/22/16 12/22/16 12/22/16 07:00 15:00 23:00 07:00 15:00 23:00 Intake Total 618 ml 100 ml 1000 ml 580 ml 200 ml Output Total 900 ml Balance 618 ml 100 ml 100 ml 580 ml 200 ml Intake Oral 900 ml 480 ml IV Total 618 ml 100 ml 100 ml 100 ml 200 ml Output Urine Total 900 ml # Voids 4 2 # Bowel Movements 1 Result Diagram: 12/22/16 1010 12/22/16 1010 Objective Remarks GENERAL: This is a well-nourished, well-developed patient, in no apparent distress. ENT: Tonsillar hypertrophy. No exudates. Bilateral cervical and submental lymphadenopathy. CARDIOVASCULAR: Normal rate and regular rhythm without murmurs, gallops, or rubs. RESPIRATORY: Good respiratory efforts. Breath sounds equal and clear to auscultation bilaterally. GASTROINTESTINAL: Abdomen soft, non-tender, non-distended. Normal active bowel sounds MUSCULOSKELETAL: Extremities without cyanosis, or edema. NEURO: Alert & Oriented x4 to person, place, time, situation. Moves all ext x4 PSYCH: Appropriate mood and affect. A/P Problem List: (1) Sepsis ICD Code: A41.9 - Sepsis, unspecified organism (2) Strep pharyngitis ICD Code: J02.0 - Streptococcal pharyngitis Status: Acute (3) Leukocytosis ICD Code: D72.829 - Elevated white blood cell count, unspecified Status: Acute (4) HTN (hypertension) ICD Code: I10 - Essential (primary) hypertension Status: Chronic Assessment and Plan 56-year-old male with history of tobacco use, hypertension not on meds, presents with a 1 day history of fever, sore throat, cough, body aches. Neck CT concerning for oropharyngeal mass with lymphadenopathy. Positive for group A strep. Sepsis with Acute Strep Pharyngitis/Tonsillitis: Meets sepsis criteria with + leukocytosis WBC 21.9K, Tmax 101.4, and source-pharyngitis/tonsillitis. Lactic acid 1.1. Strep screen positive for Group A Strep. Influenza negative. Neck CT images reviewed, shows Bilateral inhomogeneously enhancing masses in the oral pharynx with epicenter in the tonsillar fossa with extension to the base of the tongue and into the nasopharynx, Lymphoproliferative process, either malignant or nonmalignant is suspected; Bilateral jugular chain adenopathy, or prominent on the left than on the right; Bilateral maxillary sinus disease with nodular areas of mucosal thickening anteriorly, left greater than right; No air-fluid levels per radiologist read. - Very slow improvement regarding oropharyngeal swelling and pain. - Consulted ENT who advised treating the infection, consider mono workup and outpatient follow up for repeat imaging - Continue antibiotics with IV Unasyn - Blood cultures so far neg - Persistent and worsening leukocytosis. Consult ID for guidance on antibiotics. - Switched to oral steroid on 12/21, prednisone 20 mg twice a day. - Supportive treatment with IVF, antiemetics, Tylenol prn fever, and pain control with Lortab prn and IV morphine prn breakthrough pain - Tolerating soft diet for now. Hypertension: Better controlled today. Has not been on any medications at home. High-dose steroid may be contributing. -Continue lisinopril. Monitor BP. Clonidine as needed. Leukocytosis: He does have an infectious process, as been on steroid as well but leukocytosis significantly worsening. - Continue antibiotics as above. - Consult ID to ensure he is on the right antibiotics or further workup as indicated. - Follow-up CBC in a.m. 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
[2016-12-22 16:00] VITALS: BP 153/85; PULSE 83; RESP 16; TEMP 97.7; O2SAT 96
[2016-12-22 20:00] VITALS: BP 146/94; PULSE 79; RESP 18; TEMP 98.1; O2SAT 96
[2016-12-23] VITALS: BP 151/97; PULSE 72; RESP 20; TEMP 97.2; O2SAT 93
[2016-12-23] MEDS: AMPICILLIN-SULBACTAM INJ 3 GM in SODIUM CHLORIDE 0.9% INJ 100 ML IV SCH ×4 (06:24→22:00)
[2016-12-23 08:00] VITALS: BP 138/83; PULSE 62; RESP 17; TEMP 97.2; O2SAT 95
[2016-12-23] MEDS: SODIUM CHLORIDE 0.9% FLUSH 10 ML FLUSH IV FLUSH SCH ×2 (09:16→21:59)
[2016-12-23] MEDS: predniSONE 20 MG TAB PO SCH ×2 (09:16→22:00)
[2016-12-23] MEDS: LISINOPRIL 10 MG TAB PO SCH (09:16)
[2016-12-23 09:35] LABS: HEMATOCRIT 47.3 % (39.0-51.0); MEAN CELL VOLUME 89.2 FL (80.0-100.0); MEAN CORPUSCULAR HEMOGLOBIN 30.4 PG (27.0-34.0); MEAN CORPUSCULAR HGB CONC 34.1 % (32.0-36.0); PLATELET COUNT 278 TH/MM3 (150-450); RED BLOOD COUNT 5.31 MIL/MM3 (4.50-5.90); RED CELL DISTRIBUTION WIDTH 13.3 % (11.6-17.2); WHITE BLOOD COUNT 34.9 TH/MM3 (4.0-11.0)
[2016-12-23 09:45] LABS: REVIEW FLAG FINAL
[2016-12-23 09:53] LABS: BICARBONATE 28.7 MEQ/L (21.0-32.0); POTASSIUM 3.8 MEQ/L (3.5-5.1)
[2016-12-23] MEDS: ACETAMINOPHEN/HYDROcodone 325 MG/5 MG TAB PO PRN ×3 (09:59→23:10)
[2016-12-23 12:00] VITALS: BP 133/83; PULSE 78; RESP 16; TEMP 96.6; O2SAT 97
--- NOTE | 2016-12-23 14:14 | HHI.PR ---
Subjective Remarks Patient reports he is feeling better. swallowing better. Pain decreased. Leukocytosis persisting. Objective Vitals Vital Signs Date Time Temp Pulse Resp B/P (MAP) Pulse Ox O2 Delivery O2 Flow Rate FiO2 12/23/16 12:00 96.6 78 16 133/83 (100) 97 12/23/16 08:00 97.2 62 17 138/83 (101) 95 12/23/16 00:00 97.2 72 20 151/97 (115) 93 12/22/16 20:00 98.1 79 18 146/94 (111) 96 12/22/16 16:00 97.7 83 16 153/85 (107) 96 I/O 12/22/16 12/22/16 12/22/16 12/23/16 12/23/16 12/23/16 07:00 15:00 23:00 07:00 15:00 23:00 Intake Total 580 ml 200 ml 2480 ml Output Total 900 ml Balance 580 ml 200 ml 1580 ml Intake Oral 480 ml 2280 ml IV Total 100 ml 200 ml 200 ml Output Urine Total 900 ml # Voids 2 # Bowel Movements 2 Result Diagram: 12/23/1691812/23/16918 Objective Remarks GENERAL: This is a well-nourished, well-developed patient, in no apparent distress. ENT: Tonsillar hypertrophy. No exudates. Bilateral cervical and submental lymphadenopathy. CARDIOVASCULAR: Normal rate and regular rhythm without murmurs, gallops, or rubs. RESPIRATORY: Good respiratory efforts. Breath sounds equal and clear to auscultation bilaterally. GASTROINTESTINAL: Abdomen soft, non-tender, non-distended. Normal active bowel sounds MUSCULOSKELETAL: Extremities without cyanosis, or edema. NEURO: Alert & Oriented x4 to person, place, time, situation. Moves all ext x4 PSYCH: Appropriate mood and affect. A/P Problem List: (1) Sepsis ICD Code: A41.9 - Sepsis, unspecified organism (2) Strep pharyngitis ICD Code: J02.0 - Streptococcal pharyngitis Status: Acute (3) Leukocytosis ICD Code: D72.829 - Elevated white blood cell count, unspecified Status: Acute (4) HTN (hypertension) ICD Code: I10 - Essential (primary) hypertension Status: Chronic Assessment and Plan 56-year-old male with history of tobacco use, hypertension not on meds, presents with a 1 day history of fever, sore throat, cough, body aches. Neck CT concerning for oropharyngeal mass with lymphadenopathy. Positive for group A strep. Sepsis with Acute Strep Pharyngitis/Tonsillitis: Meets sepsis criteria with + leukocytosis WBC 21.9K, Tmax 101.4, and source-pharyngitis/tonsillitis. Lactic acid 1.1. Strep screen positive for Group A Strep. Influenza negative. Neck CT images reviewed, shows Bilateral inhomogeneously enhancing masses in the oral pharynx with epicenter in the tonsillar fossa with extension to the base of the tongue and into the nasopharynx, Lymphoproliferative process, either malignant or nonmalignant is suspected; Bilateral jugular chain adenopathy, or prominent on the left than on the right; Bilateral maxillary sinus disease with nodular areas of mucosal thickening anteriorly, left greater than right; No air-fluid levels per radiologist read. - Slowly improving - Consulted ENT who advised treating the infection, consider mono workup and outpatient follow up for repeat imaging - Continue antibiotics with IV Unasyn - Blood cultures so far neg - Persistent leukocytosis. Appreciate ID consult. Plan to transition to Augmentin on discharge. - Switched to oral steroid on 12/21, prednisone 20 mg twice a day. - Supportive treatment with IVF, antiemetics, Tylenol prn fever, and pain control with Lortab prn and IV morphine prn breakthrough pain - Tolerating reg diet for now. Hypertension: Better controlled today. Has not been on any medications at home. High-dose steroid may be contributing. -Continue lisinopril. Monitor BP. Clonidine as needed. Leukocytosis: He does have an infectious process, as been on steroid as well. - Continue antibiotics as above. - Follow-up CBC in a.m. 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 Will need assistance with getting meds. Problem Qualifiers (1) Leukocytosis: Qualified Codes: D72.829 - Elevated white blood cell count, unspecified Leona Staton MD Dec 23, 2016 14:14
--- NOTE | 2016-12-23 15:15 | PD.ID.CON ---
History of Present Illness Service ID Consult Requested By Reason for Consult Evaluation and mment of Strep Grp A tonsillopharyngitis. Primary Care Physician No Primary Care Physician Diagnoses: History of Present Illness is a 56 y/o AAM with history of tobacco use, hypertension not on medications, presents with a 1 day history of fever, sore throat, cough, body aches. The patient reports all of a sudden yesterday morning he had severe chills, subjective fevers, and full body aches. He also noticed nasal congestion , odynophagia, dysphagia, and productive cough. He is still able to tolerate some liquids. He report diffuse lymph node swelling throughout the neck. He has noticed his voice has changed. He denies any sick contacts and is not around children regularly. He took some unknown pain medication with minimal relief. He has never experienced this before. He denies any other medical complaints including no chest pain, palpitations, shortness of breath, wheezing, abdominal pain, nausea/vomiting, or diarrhea. ENT saw the patient with no plans for surgery.Patient was started on antibiotics and steroids. Patient reports feeling better since antibiotics and steroids started. No fevers. Tolerating Ampicillin well. ID consulted for evaluation and mment of strep grp A tonsillopharyngitis and persistent leucocytosis. Review of Systems ROS Limitations: Poor Historian Past Family Social History Allergies: Coded Allergies: No Known Allergies (Verified , 12/18/16) Past Medical History Hypertension, not on medications Past Surgical History Cranial plate Reported Medications I attest that I obtained, reviewed or updated the home meds and current meds ( for name, dose, freq, route of medications) Reported Meds & Active Scripts Active No Active Prescriptions or Reported Medications Active Ordered Medications Current Medications Medications (Trade) Dose Ordered Sig/Bisi Route Start Time Stop Time Status Last Admin (NS Flush) 2 ml UNSCH PRN IV FLUSH 12/18/16 18:00 (NS Flush) 2 ml BID IV FLUSH 12/18/16 21:00 12/23/16 09:16 (Tylenol) 650 mg Q4H PRN PO 12/18/16 18:00 (Zofran Inj) 4 mg Q6H PRN IVP 12/18/16 18:00 (Narcan Inj) 0.4 mg UNSCH PRN IV PUSH 12/18/16 18:00 (Milk Of Magnesia Liq) 30 ml Q12H PRN PO 12/18/16 18:00 (Senokot) 17.2 mg Q12H PRN PO 12/18/16 18:00 (Dulcolax Supp) 10 mg DAILY PRN RECTAL 12/18/16 18:00 (Lactulose Liq) 30 ml DAILY PRN PO 12/18/16 18:00 (Dalton 5-325 Mg) 1 tab Q4H PRN PO 12/18/16 18:00 12/23/16 15:44 (Morphine Inj) 2 mg Q3H PRN IV PUSH 12/18/16 18:00 Ampicillin Sodium/ Sulbactam Sodium 3 gm/Sodium Chloride 100 ml @ 200 mls/hr Q6H IV 12/18/16 23:00 12/23/16 17:20 (Catapres) 0.1 mg Q6H PRN PO 12/21/16 09:00 12/21/16 16:25 (Deltasone) 20 mg BID PO 12/21/16 21:00 12/23/16 09:16 (Prinivil) 10 mg DAILY PO 12/21/16 14:00 12/23/16 09:16 (Vasotec Inj) 1.25 mg Q6H PRN IV PUSH 12/21/16 18:30 Family History Mother with kidney failure Father with colon cancer Family history also positive for hypertension Social History Smokes tobacco, 5-6 cigarettes daily Very occasional alcohol use Denies any illicit drug use Physical Exam Vital Signs Vital Signs Date Time Temp Pulse Resp B/P (MAP) Pulse Ox O2 Delivery O2 Flow Rate FiO2 12/23/16 12:00 96.6 78 16 133/83 (100) 97 12/23/16 08:00 97.2 62 17 138/83 (101) 95 12/23/16 00:00 97.2 72 20 151/97 (115) 93 12/22/16 20:00 98.1 79 18 146/94 (111) 96 12/22/16 16:00 97.7 83 16 153/85 (107) 96 Physical Exam GENERAL: This is a well-nourished, well-developed patient, in no apparent distress. SKIN: No rashes, ecchymoses or lesions. Cool and dry. Oral cavity: tonsillitis and pharyngitis with membranes, airway patent. shotty neck LNs. No neck stiffness. Able to swallow. HEAD: Atraumatic. Normocephalic. No temporal or scalp tenderness. EYES: Pupils equal round and reactive. Extraocular motions intact. No scleral icterus. No injection or drainage. ENT: Nose without bleeding, purulent drainage or septal hematoma. Throat without erythema, tonsillar hypertrophy or exudate. Uvula midline. Airway patent. NECK: Trachea midline. No JVD or lymphadenopathy. Supple, nontender, no meningeal signs. CARDIOVASCULAR: Regular rate and rhythm without murmurs, gallops, or rubs. RESPIRATORY: Clear to auscultation. Breath sounds equal bilaterally. No wheezes , rales, or rhonchi. GASTROINTESTINAL: Abdomen soft, non-tender, nondistended. No hepato-splenomegaly , or palpable masses. No guarding. MUSCULOSKELETAL: Extremities without clubbing, cyanosis, or edema. No joint tenderness, effusion, or edema noted. No calf tenderness. Negative Homans sign bilaterally. NEUROLOGICAL: Awake and alert. Cranial nerves II through XII intact. Motor and sensory grossly within normal limits. Five out of 5 muscle strength in all muscle groups. Normal speech. Psych cooperative IV line sites with no e.o infection. Laboratory Laboratory Tests Test 12/23/16 09:19 White Blood Count 34.9 Red Blood Count 5.31 Hemoglobin 16.2 Hematocrit 47.3 Mean Corpuscular Volume 89.2 Mean Corpuscular Hemoglobin 30.4 Mean Corpuscular Hemoglobin Concent 34.1 Red Cell Distribution Width 13.3 Platelet Count 278 Mean Platelet Volume 8.1 Blood Urea Nitrogen 13 Creatinine 1.21 Random Glucose 172 Calcium Level 9.2 Sodium Level 137 Potassium Level 3.8 Chloride Level 99 Carbon Dioxide Level 28.7 Anion Gap 9 Estimat Glomerular Filtration Rate 76 Date/Time Source Procedure Growth Status 12/18/16 13:20 Blood Peripheral Aerobic Blood Culture - Final NO GROWTH IN 5 DAYS Complete 12/18/16 13:20 Blood Peripheral Anaerobic Blood Culture - Final NO GROWTH IN 5 DAYS Complete 12/18/16 13:20 Nasal Aspirate Influenza Types A,B Antigen (DYLAN) - Final NEGATIVE FOR FLU A AND B ANTIGEN.... Complete Result Diagram: 12/23/1691812/23/16918 Imaging Last Impressions Chest X-Ray 12/18/16 1329 Signed Impressions: Service Date/Time: Sunday, December 18, 2016 13:38 - CONCLUSION: 1. Minimal linear left lower lobe opacity, likely atelectasis/scarring. Bakari Pang MD Neck CT 12/18/16 0000 Signed Impressions: Service Date/Time: Sunday, December 18, 2016 15:13 - CONCLUSION: 1. Bilateral inhomogeneously enhancing masses in the oral pharynx with epicenter in the tonsillar fossa with extension to the base of the tongue and into the nasopharynx. Lymphoproliferative process, either malignant or nonmalignant is suspected. 2. Bilateral jugular chain adenopathy, or prominent on the left than on the right. 3. Bilateral maxillary sinus disease with nodular areas of mucosal thickening anteriorly, left greater than right. No air-fluid levels. Caio Elias MD Assessment and Plan Assessment and Plan Sepsis present on admission. Strep Grp A tonsillopharyngitis. Persistent leucocytosis: steroids, infection. HTN recent screen for HIV and hepatitis negative. Recs Continue Unasyn IV. Follow cultures Follow clinically. BCX negative. Follow EBV titer. If clinically improving and tolerating oral. Ok to transition to oral augmentin on discharge. d/w : Will sign off please call back if any change in clinical condition or questions. Jessica Herndon MD Dec 23, 2016 15:15
[2016-12-23 16:00] VITALS: BP 145/88; PULSE 64; RESP 18; TEMP 96.1; O2SAT 95
[2016-12-23 20:00] VITALS: BP 158/87; PULSE 95; RESP 20; TEMP 97; O2SAT 98
[2016-12-24 00:56] LABS: EBV VCA IgM Negative (Negative)
[2016-12-24 01:08] VITALS: BP 152/82; PULSE 79; RESP 20; TEMP 97.4; O2SAT 98
[2016-12-24] MEDS: AMPICILLIN-SULBACTAM INJ 3 GM in SODIUM CHLORIDE 0.9% INJ 100 ML IV SCH (05:17)
[2016-12-24 05:29] LABS: HEMATOCRIT 46.2 % (39.0-51.0); MEAN CELL VOLUME 90.3 FL (80.0-100.0); MEAN CORPUSCULAR HEMOGLOBIN 30.8 PG (27.0-34.0); MEAN CORPUSCULAR HGB CONC 34.1 % (32.0-36.0); PLATELET COUNT 291 TH/MM3 (150-450); RED BLOOD COUNT 5.12 MIL/MM3 (4.50-5.90); RED CELL DISTRIBUTION WIDTH 13.4 % (11.6-17.2); WHITE BLOOD COUNT 34.4 TH/MM3 (4.0-11.0)
[2016-12-24 05:32] LABS: REVIEW FLAG FINAL
[2016-12-24 08:00] VITALS: BP 142/89; PULSE 70; RESP 16; TEMP 97.4; O2SAT 95
[2016-12-24] MEDS: LISINOPRIL 10 MG TAB PO SCH (08:05)
[2016-12-24] MEDS: predniSONE 20 MG TAB PO SCH (08:05)
[2016-12-24] MEDS: SODIUM CHLORIDE 0.9% FLUSH 10 ML FLUSH IV FLUSH SCH (08:05)
[2016-12-24] MEDS ORDERED: PRED20 PO (08:51)
[2016-12-24] MEDS ORDERED: LISI10TA3 PO (08:51)
[2016-12-24] MEDS ORDERED: AUGM875T3 PO (08:51)
[2016-12-24 12:00] VITALS: BP 138/78; PULSE 96; RESP 18; TEMP 97.6; O2SAT 94
--- NOTE | 2016-12-24 13:24 | HHI.DCPOC ---
Discharge Care Plan Diagnosis: (1) Strep pharyngitis (2) Sepsis (3) HTN (hypertension) (4) Leukocytosis Goals to Promote Your Health * To prevent worsening of your condition and complications * To maintain your health at the optimal level Directions to Meet Your Goals Take your medications as prescribed Follow your dietary instruction Follow activity as directed Keep your appointments as scheduled Take your immunizations and boosters as scheduled If your symptoms worsen call your PCP, if no PCP go to Urgent Care Center or Emergency Room Smoking is Dangerous to Your Health. Avoid second hand smoke Call the 24-hour hour crisis hotline for domestic abuse at Leona Staton MD Dec 24, 2016 13:24
--- NOTE | 2016-12-24 13:25 | HHI.DS ---
Discharge Summary Admission Date Dec 18, 2016 at 17:57 Discharge Date: Dec 24, 2016 Admitting Diagnosis (1) Sepsis ICD Code: A41.9 - Sepsis, unspecified organism (2) Strep pharyngitis ICD Code: J02.0 - Streptococcal pharyngitis Status: Acute (3) Leukocytosis ICD Code: D72.829 - Elevated white blood cell count, unspecified Status: Acute (4) HTN (hypertension) ICD Code: I10 - Essential (primary) hypertension Status: Chronic Procedures None Brief History - From Admission 56-year-old male with history of tobacco use, hypertension not on medications, presents with a 1 day history of fever, sore throat, cough, body aches. The patient reports all of a sudden yesterday morning he had severe chills, subjective fevers, and full body aches. He also noticed nasal congestion, odynophagia, dysphagia, and productive cough. He is still able to tolerate some liquids. He report diffuse lymph node swelling throughout the neck. He has noticed his voice has changed. He denies any sick contacts and is not around children regularly. He took some unknown pain medication with minimal relief. He has never experienced this before. He denies any other medical complaints including no chest pain, palpitations, shortness of breath, wheezing, abdominal pain, nausea/vomiting, or diarrhea. CBC/BMP: 12/24/16 0340 12/23/16 0919 Significant Findings Laboratory Tests Test 12/22/16 10:10 12/23/16 09:19 12/24/16 03:40 White Blood Count 34.1 TH/MM3 (4.0-11.0) 34.9 TH/MM3 (4.0-11.0) 34.4 TH/MM3 (4.0-11.0) Random Glucose 141 MG/DL (74-106) 172 MG/DL (74-106) Estimat Glomerular Filtration Rate 85 ML/MIN (>89) 76 ML/MIN (>89) Imaging Last Impressions Chest X-Ray 12/18/16 1329 Signed Impressions: Service Date/Time: Sunday, December 18, 2016 13:38 - CONCLUSION: 1. Minimal linear left lower lobe opacity, likely atelectasis/scarring. Bakari Pang MD Neck CT 12/18/16 0000 Signed Impressions: Service Date/Time: Tuesday, December 18, 2016 15:13 - CONCLUSION: 1. Bilateral inhomogeneously enhancing masses in the oral pharynx with epicenter in the tonsillar fossa with extension to the base of the tongue and into the nasopharynx. Lymphoproliferative process, either malignant or nonmalignant is suspected. 2. Bilateral jugular chain adenopathy, or prominent on the left than on the right. 3. Bilateral maxillary sinus disease with nodular areas of mucosal thickening anteriorly, left greater than right. No air-fluid levels. Caio Elias MD PE at Discharge GENERAL: This is a well-nourished, well-developed patient, in no apparent distress. ENT: Tonsillar hypertrophy. No exudates. Bilateral cervical and submental lymphadenopathy. CARDIOVASCULAR: Normal rate and regular rhythm without murmurs, gallops, or rubs. RESPIRATORY: Good respiratory efforts. Breath sounds equal and clear to auscultation bilaterally. GASTROINTESTINAL: Abdomen soft, non-tender, non-distended. Normal active bowel sounds MUSCULOSKELETAL: Extremities without cyanosis, or edema. NEURO: Alert & Oriented x4 to person, place, time, situation. Moves all ext x4 PSYCH: Appropriate mood and affect. Pt update on day of discharge Patient reports is feeling much better. Eager to go home. Swallowing much improved. Pain is controlled. Hospital Course 56-year-old male with history of tobacco use, hypertension not on meds, presents with a 1 day history of fever, sore throat, cough, body aches. Neck CT concerning for oropharyngeal mass with lymphadenopathy. Positive for group A strep. Evaluation and treatment course detailed below: Sepsis with Acute Strep Pharyngitis/Tonsillitis: Meets sepsis criteria with + leukocytosis WBC 21.9K, Tmax 101.4, and source-pharyngitis/tonsillitis. Lactic acid 1.1. Strep screen positive for Group A Strep. Influenza negative. Neck CT images reviewed, shows Bilateral inhomogeneously enhancing masses in the oral pharynx with epicenter in the tonsillar fossa with extension to the base of the tongue and into the nasopharynx, Lymphoproliferative process, either malignant or nonmalignant is suspected; Bilateral jugular chain adenopathy, or prominent on the left than on the right; Bilateral maxillary sinus disease with nodular areas of mucosal thickening anteriorly, left greater than right; No air-fluid levels per radiologist read. The patient was treated with IV Unasyn. ENT was consulted who advised treating the infection with antibiotics and outpatient follow-up for repeat imaging. Blood cultures remain negative. The patient had a persistent leukocytosis that was likely secondary to steroid use. Infectious disease was consulted who advised continuing treatment with antibiotics and recommended Augmentin on discharge. The patient symptoms slowly improved. He is discharged home on Augmentin and a prednisone taper to complete the course of treatment. A mandatory referral was ordered for ENT. Hypertension: Better controlled today. Has not been on any medications at home. I suspect his hypertension was not treated. He was started on lisinopril with improvement of blood pressure. He is discharged on same. He is advised to follow-up outpatient with PCP for further antihypertensive titration as needed. 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 Pt Condition on Discharge: Good Discharge Disposition: Discharge Home Discharge Time: > 30 minutes Discharge Instructions DIET: Follow Instructions for: As Tolerated, No Restrictions Activities you can perform: Regular-No Restrictions Follow up Referrals: Ear Nose Throat New Medications: Amoxicillin-Clavulanate (Augmentin) 875-125 Mg Tab 1 TAB PO BID for Infection, #28 TAB 0 Refills Prednisone (Prednisone) 20 Mg Tab 20 MG PO DIRECTED for Inflammation, #5 TAB 0 Refills 20 MG daily x 3 days, then 10 MG daily x 4 days Lisinopril (Lisinopril) 10 Mg Tab 10 MG PO DAILY, #30 TAB Leona Staton MD Dec 24, 2016 13:25
[2016-12-24] MEDS: ACETAMINOPHEN/HYDROcodone 325 MG/5 MG TAB PO PRN (15:30)
== END 2016-12-24 19:24 | disposition home or self-care (01) | DRG 872 ==
LOC: NEPE 13:01 → NEDA 17:48 → OBSVTOIN 17:57 → N07A 22:50
PROVIDERS: ADMIT Hospitalist; ATTEND Hospitalist
DX: A41.9 Sepsis, unspecified organism (principal); I10 Essential (primary) hypertension; J02.0 Streptococcal pharyngitis; F17.210 Nicotine dependence, cigarettes, uncomplicated
CPT/HCPCS: 70491; 71010; 80048; 80053; 83605; 85025; 85027; 86664; 86665; 87040; 87804; 87880; 96361; 96365; 96375; J0295; J1100; J2920; J7030; J7512; Q9967

== ENCOUNTER 2017-02-12 23:45 | Emergency (ER) | payer SELFPAY ==
[~2017-02-12] VITALS: Ht 157.5 cm; Wt 82.0 kg
[~2017-02-12 23:45] MED LIST changes: +AUGM875T3 PO; +LISI10TA3 PO; -LORT5TAB PO; +PRED20 PO
[2017-02-12 23:47] VITALS: BP 180/97; PULSE 82; RESP 16; TEMP 97.6; O2SAT 98
[2017-02-13] MEDS ORDERED: ACETAMINOPHEN/HYDROcodone 325 MG/5 MG TAB PO ONE (00:15)
[2017-02-13] MEDS ORDERED: IBUP-232 PO (00:27)
[2017-02-13] MEDS ORDERED: CYCL5TAB PO (00:27)
--- NOTE | 2017-02-13 00:27 | PD ---
HPI Chief Complaint: Back/ Neck Pain or Injury Time Seen by Provider: 00:04 Travel History International Travel<30 days: No Contact w/Intl Traveler<30days: No Traveled to known affect area: No History of Present Illness HPI 56 yo M c/o low back pain after falling while stepping out of the shower this approx 18 hours prior to ER arrival. pain is constant. pain is worse with walking. no fecal urinary incontinence. no hx cancer or immunosuppresive therapy. no hx diabetes. pt notes pain radiating down legs. no saddle anesthesia. he feels a mass in the R lower back area. PFSH Past Medical History Cancer: No Cardiovascular Problems: Yes (HTN) High Cholesterol: Yes Diminished Hearing: No Endocrine: No Gastrointestinal Disorders: No Genitourinary: No Hypertension: Yes Immune Disorder: No Musculoskeletal: No Neurologic: No Psychiatric: No Reproductive: No Respiratory: No Past Surgical History Abdominal Surgery: No Cardiac Surgery: No Ear Surgery: No Endocrine Surgery: No Eye Surgery: No Genitourinary Surgery: No Gynecologic Surgery: No Neurologic Surgery: No Oral Surgery: No Thoracic Surgery: No Other Surgery: No (PLATE IN LEFT ANTRIOR HEAD) Social History Alcohol Use: Yes (OCC) Tobacco Use: Yes (3 CIG PER DAY) Substance Use: No Allergies-Medications (Allergen,Severity, Reaction): Coded Allergies: No Known Allergies (Verified Adverse Reaction, Unknown, 02/12/17) Reported Meds & Prescriptions Reported Meds & Active Scripts Active Flexeril (Cyclobenzaprine HCl) 5 Mg Tab 5 Mg PO HS Ibuprofen 600 Mg Tab 600 Mg PO Q8HR PRN 5 Days Review of Systems General / Constitutional: No: Fever Musculoskeletal: Positive: Pain Neurologic: No: Weakness, Paresthesia Physical Exam Narrative GENERAL: 56 yo M, WNWD, NAD SKIN: Warm and dry. HEAD: Normocephalic. EYES: No scleral icterus. No injection or drainage. NECK: Supple, trachea midline. No JVD or lymphadenopathy. CARDIOVASCULAR: Regular rate and rhythm without murmurs, gallops, or rubs. RESPIRATORY: Breath sounds equal bilaterally. No accessory muscle use. GASTROINTESTINAL: Abdomen soft, non-tender, nondistended. MUSCULOSKELETAL: No cyanosis, or edema. No focal spinal tenderness to palpation. + TTP right lower para-lumbar musculature. BACK: Nontender without obvious deformity. No CVA tenderness. Data Data Last Documented VS Vital Signs Date Time Temp Pulse Resp B/P (MAP) Pulse Ox O2 Delivery O2 Flow Rate FiO2 02/13/17 01:03 02/12/17 23:47 97.6 82 16 98 Room Air VS reviewed Orders Orders Acetamin-Hydrocod 325-5 Mg ([place]zier 5-325 (02/13/17 00:15) Spine, Lumbar - Ltd (Ap & Lat) (02/13/17 ) Ed Discharge Order (02/13/17 01:06) MDM Medical Decision Making Medical Screen Exam Complete: Yes Emergency Medical Condition: Yes Medical Record Reviewed: Yes Differential Diagnosis epidural abscess, paraspinal hematoma, fracture, sciatica Narrative Course xray shows no acute injury Pain controlled Cord compromise considered reasonably safely excluded Diagnosis Primary Impression: Low back pain Qualified Codes: M54.41 - Lumbago with sciatica, right side Referrals: Primary Care Physician call for appointment Med/Other Pt SpecificInfo: Prescription(s) given Scripts Cyclobenzaprine (Flexeril) 5 Mg Tab 5 MG PO HS for Muscle Spasm, #20 TAB 0 Refills Prov: Buddy Muniz MD 02/13/17 Ibuprofen (Ibuprofen) 600 Mg Tab 600 MG PO Q8HR Y for PAIN for 5 Days, TAB 0 Refills Prov: Buddy Muniz MD 02/13/17 Disposition: 01 DISCHARGE HOME Condition: Stable Buddy Muniz MD Feb 13, 2017 00:27
--- NOTE | 2017-02-13 00:51 | RADRPT ---
EXAM DATE/TIME: 02/13/2017 00:38 [facility] COMPARISON: SPINE LUMBAR [facility]TD (AP & LAT), April 24, 2009, 7:43. INDICATIONS : Back pain from a fall. MEDICAL HISTORY : Cardiovascular disease. SURGICAL HISTORY : None. ENCOUNTER: Initial ACUITY: 1 day PAIN SCORE: 8/10 LOCATION: Bilateral low back FINDINGS: Two view examination was performed. There are five non-rib bearing vertebral bodies. The vertebral bodies are in normal alignment without evidence of subluxation or scoliosis. Mild degenerative disc c hanges are noted with mild disc space narrowing and hypertrophic change. The pedicles are intact. [place] mineralization is normal. No fracture is identified. CONCLUSION: 1. No acute fracture or malalignment. 2. Mild degenerative disc change. Wilber Jaimes MD on February 13, 2017 at 0:49 Board Certified Radiologist. This report was verified electronically.
== END 2017-02-13 06:27 | disposition home or self-care (01) ==
LOC: NEPD 23:45
DX: M51.36 Other intervertebral disc degeneration, lumbar region (principal); I10 Essential (primary) hypertension; F17.210 Nicotine dependence, cigarettes, uncomplicated
CPT/HCPCS: 72100; 99283

== ENCOUNTER 2017-04-05 09:29 | Emergency (ER) | payer SELFPAY ==
[~2017-04-05] VITALS: Ht 157.5 cm; Wt 79.0 kg
[~2017-04-05 09:29] MED LIST changes: -AUGM875T3 PO; +CYCL5TAB PO; +IBUP-232 PO; -LISI10TA3 PO; -PRED20 PO
[2017-04-05 09:31] VITALS: BP 137/98; PULSE 78; RESP 18; TEMP 98.6; O2SAT 100
[2017-04-05] MEDS ORDERED: NAPROXEN 500 MG TAB PO ONE (10:00)
[2017-04-05] MEDS ORDERED: CYCLOBENZAPRINE HCL 10 MG TAB PO ONE (10:00)
[2017-04-05] MEDS ORDERED: CYCL10TA PO (10:03)
[2017-04-05] MEDS ORDERED: NAPR500T2 PO (10:03)
--- NOTE | 2017-04-05 10:03 | PD ---
HPI Chief Complaint: Flank/Kidney Pain Time Seen by Provider: 09:40 Travel History International Travel<30 days: No Contact w/Intl Traveler<30days: No Traveled to known affect area: No History of Present Illness HPI Severity 6 old man who presents to the emergency department complaining of low back pain. He states pain is been going on for the past month or so, worse over the past several days. Pain stays mostly in the low back without any significant radiation. He does have some pain in the anterior left knee as well. No numbness tingling or weakness. Just in a barney to get the bathroom to urinate. Denies any saddle anesthesia symptoms, incontinence, fecal incontinence, or other changes. He's had similar problems a little bit in the past but does not commonly have back problems. No fevers or chills. No other complaints. History Past Medical History Narrative Medical Hypertension Hyperlipidemia Social History Alcohol Use: Yes (OCC) Tobacco Use: Yes (3 CIG PER DAY) Allergies-Medications (Allergen,Severity, Reaction): Coded Allergies: No Known Allergies (Verified Adverse Reaction, Unknown, 04/05/17) Reported Meds & Prescriptions Reported Meds & Active Scripts Active Flexeril (Cyclobenzaprine HCl) 5 Mg Tab 5 Mg PO HS Ibuprofen 600 Mg Tab 600 Mg PO Q8HR PRN 5 Days Review of Systems Except as stated in HPI: all other systems reviewed are Neg Physical Exam Narrative GENERAL: A 56-year-old man, generally well-appearing, hunched over little bit while walking. SKIN: Warm and dry. CARDIOVASCULAR: Warm and well perfused. RESPIRATORY: Normal rate and effort. MUSCULOSKELETAL: Normal appearance of back and bilateral lower extremities. No ecchymosis, swelling, bruising. No rashes. Normal muscle bulk and tone. NEUROLOGICAL: Strength full 5/5 and equal in bilateral lower extremities in proximal and distal muscle groups. 5/5 in large toe flexion and extension. Sensation is intact to light touch throughout. Reflexes symmetric. No clonus. Perianal sensation intact to pinprick. PSYCHIATRIC: Appropriate mood and affect; insight and judgment normal. Data Data Last Documented VS Vital Signs Date Time Temp Pulse Resp B/P (MAP) Pulse Ox O2 Delivery O2 Flow Rate FiO2 04/05/17 09:31 98.6 78 18 137/98 (111) 100 Orders Orders Cyclobenzaprine (Flexeril) (04/05/17 10:00) Naproxen (Naprosyn) (04/05/17 10:00) [facility] Medical Decision Making Medical Screen Exam Complete: Yes Emergency Medical Condition: Yes Differential Diagnosis Acute low back pain, strain or sprain, herniated disc, compression, abscess, malignancy Narrative Course Medical decision-making new 56 old man, couple urinary changes, but no other red flag symptoms. Exams unremarkable without evidence of cauda equina. Reviewed previous imaging CT abdomen and pelvis and L-spine x-ray earlier this year. Recommend no further evaluation at this time, supportive treatment. Diagnosis Primary Impression: Back pain Additional Instructions: Take naproxen as prescribed. Take Flexeril as needed for pain. Use caution as this can cause drowsiness. Return to the emergency department for any worsening pain, numbness, tingling, weakness, or any other new or worsening symptoms. Med/Other Pt SpecificInfo: Prescription(s) given Scripts Cyclobenzaprine (Flexeril) 10 Mg Tab 10 MG PO TID for Muscle Spasm, #20 TAB 0 Refills Prov: Corby Venegas MD 04/05/17 Naproxen (Naproxen) 500 Mg Tab 500 MG PO BID, #20 TAB 0 Refills Prov: Corby Venegas MD 04/05/17 Disposition: 01 DISCHARGE HOME Condition: Stable Corby Venegas MD Apr 05, 2017 10:03
== END 2017-04-05 10:54 | disposition home or self-care (01) ==
LOC: NEPD 09:29
DX: M54.5 Low back pain (principal); F17.210 Nicotine dependence, cigarettes, uncomplicated
CPT/HCPCS: 99284